=== PATIENT | male | born 2000 | race Two or more races ===

== ENCOUNTER 2022-06-09 19:19 | Emergency (ER) | payer SELFPAY ==
[~2022-06-09] VITALS: Ht 182.9 cm; Wt 90.7 kg
[2022-06-09 20:03] LABS: Basophils # (auto) 0.1 10 ^3/uL (0-0.2); Eosinophils # (auto) 0.2 10 ^3/uL (0-0.8); Eosinophils % (auto) 3.4 % (0.0-7.0); Hematocrit 43.4 % (41.0-53.0); Hemoglobin 15.5 g/dL (13.5-17.5); Lymphocytes # (auto) 1.3 10 ^3/uL (0.4-5.4); Mean Corpuscular Hemoglobin 31.3 pg (28.0-32.0); Mean Corpuscular Hgb Conc. 35.7 g/dL (32.0-36.0); Mean Corpuscular Volume 87.5 fL (80.0-100.0); Monocytes # (auto) 0.4 10 ^3/uL (0-1.3); Monocytes % (auto) 6.2 % (0.0-12.0); Neutrophils # (auto) 4.2 10 ^3/uL (1.6-8.6); Neutrophils % (auto) 68.4 % (37.0-80.0); Red Blood Cells 4.95 10^6/uL (4.5-5.90); Red Cell Distribution Width 12.6 % (11.8-14.3); White Blood Cell 6.2 10^3/uL (4.4-10.8)
[2022-06-09 20:24] LABS: INR 1.18 (0.9-1.15); Partial Thromboplastin Time 27.4 sec (24.6-33.4)
[2022-06-09 20:25] LABS: Albumin 4.7 g/dL (3.4-5.0); BUN/Creatinine Ratio 11.9; Calcium 9.6 mg/dL (8.5-10.1); Magnesium 2.1 mg/dL (1.6-2.6); Potassium 3.6 mmol/L (3.5-5.1)
[2022-06-09 20:28] LABS: Bilirubin, Total 0.9 mg/dL (0.2-1.0); Total Protein 7.9 g/dL (6.4-8.2)
[2022-06-09 21:25] LABS: Urine Amorphous Crystal FEW /hpf (None Seen); Urine Bacteria NONE SEEN /hpf (None Seen); Urine Blood Negative /uL (Negative); Urine Mucus FEW (None Seen); Urine Specific Gravity 1.021 (1.001-1.035); Urine WBC 21 /hpf (0 - 3); Urine WBC Clumps PRESENT /hpf (None Seen)
[2022-06-09 21:36] LABS: Alcohol, Urine < 3.0 mg/dL (0-10); Amphetamine Screen, Urine NEGATIVE (NEGATIVE); Barbiturate Scree,Urine NEGATIVE (NEGATIVE); Benzodiazephine Screen, Urine NEGATIVE (NEGATIVE); Cannabinoid Screen, Urine NEGATIVE (NEGATIVE); Cocaine Screen, Urine NEGATIVE (NEGATIVE); Opiate Scree,Urine NEGATIVE (NEGATIVE); Phencyclidine Screen, Urine NEGATIVE (NEGATIVE)
[2022-06-09 22:23] VITALS: BP 106/60
[2022-06-09] MEDS ORDERED: LORazepam 0.5 MG TAB PO ONE (22:45)
[2022-06-10] MEDS ORDERED: PROPARACAINE HCL 0.5% OPTH(EYE) SOL 15ML OP ONE (04:30)
[2022-06-10] MEDS ORDERED: TETRACAINE HCL 0.5% OPTH(EYE) SOLN 4ML EACHEYE ONE (05:30)
== END 2022-06-10 05:21 | disposition left against medical advice (07) ==
LOC: EDBD 19:19 → ER 19:28
DX: I31.9 Disease of pericardium, unspecified (principal); R55 Syncope and collapse; R07.89 Other chest pain; F41.9 Anxiety disorder, unspecified; Z53.29 Procedure and treatment not carried out because of patient's decision for other reasons
CPT/HCPCS: 36415; 71045; 80053; 80307; 80320; 81001; 83735; 84484; 85025; 85610; 85730; 93005

== ENCOUNTER 2024-08-11 02:05 | Emergency (ER) | payer MEDICAID, OTHER ==
[~2024-08-11] VITALS: Ht 182.9 cm; Wt 98.9 kg
[2024-08-11 03:19] LABS: Urine Bacteria None Seen /hpf (None Seen)
[2024-08-11 03:56] LABS: Basophils # (auto) 0 10 ^3/uL (0-0.2); Basophils % (auto) 0.7 % (0.0-2.0); Eosinophils # (auto) 0.2 10 ^3/uL (0-0.8); Eosinophils % (auto) 3.1 % (0.0-7.0); Hematocrit 43.6 % (41.0-53.0); Hemoglobin 15.4 g/dL (13.5-17.5); Lymphocytes # (auto) 2.3 10 ^3/uL (0.4-5.4); Lymphocytes % (auto) 37.1 % (10.0-50.0); Mean Corpuscular Hemoglobin 31.4 pg (28.0-32.0); Mean Corpuscular Hgb Conc. 35.3 g/dL (32.0-36.0); Mean Corpuscular Volume 88.9 fL (80.0-100.0); Monocytes # (auto) 0.7 10 ^3/uL (0-1.3); Monocytes % (auto) 11.9 % (0.0-12.0); Neutrophils % (auto) 47.2 % (37.0-80.0); Nucleated Red Blood Cells % 0.1 %; Platelet Count (auto) 309 10^3/uL (140-450); Red Blood Cells 4.91 10^6/uL (4.5-5.90); Red Cell Distribution Width 12.9 % (11.8-14.3); White Blood Cell 6.3 10^3/uL (4.4-10.8)
[2024-08-11 04:11] LABS: Urine Blood Negative /uL (Negative); Urine Clarity Clear (Clear); Urine Color Light-Yellow (Yellow); Urine Protein, UAD Negative (Negative); Urine Specific Gravity 1.027 (1.001-1.035); Urine Squamous Epithelial Cell None Seen /hpf (<5); Urine Urobilinogen Normal (Negative); Urine WBC <1 /hpf (0 - 3)
[2024-08-11 04:11] LABS: Alanine Aminotransferase 23 U/L (7-40); Albumin 4.8 g/dL (3.2-4.8); Alkaline Phosphatase 75 U/L (46-116); Anion Gap 8 (5-15); Aspartate Aminotransferase 17 U/L (13-40); BUN/Creatinine Ratio 12.2 (10.0-20.0); Blood Urea Nitrogen 11 mg/dL (9-23); Calcium 10.2 mg/dL (8.7-10.4); Carbon Dioxide 26 mmol/L (20-31); Chloride 107 mmol/L (98-107); Glucose 104 mg/dL (74-106); Lipase 39 U/L (12-53); Potassium 4.2 mmol/L (3.5-5.1); Sodium 141 mmol/L (136-145)
[2024-08-11 04:12] LABS: Bilirubin, Total 0.3 mg/dL (0.2-1.0); Total Protein 7.4 g/dL (5.7-8.2)
--- NOTE | 2024-08-11 04:14 | ED.PDOC ---
GI ASSESSMENT HPI Comments 23y M who presents to the ED for chief complaint of abdominal pain. Pt states he has been having R sided abdominal pain for the past 3 hours. Pt states the pain is by his RUQ radiating to the RLQ, constant, pressure like in nature, with no associated exacerbating or relieving factors. Pt has associated nausea and vomiting ,chills and fever but otherwise denies diarrhea, cough, dysuria or hematuria. Pt states he has been evaluated for similar symptoms in the past and told he had gallstones. Pt otherwise states he took Tylenol prior to ED arrival. Pt otherwise denies any other symptoms at this time. Pt has temp of 98.1 F with all other vitals in normal range. Pt denies any other symptoms at this time. Chief Complaint: Abdominal Pain Time Seen by MD: 04:09 Reviewed Notes: Nurses Notes Allergies: Coded Allergies: Iodine (Verified Allergy, Unknown, 08/11/24) Information Source: Patient Mode of Arrival: Ambulatory Brought in by: self Vital Signs Vital Signs Date Time Temp Pulse Resp B/P (MAP) Pulse Ox O2 Delivery O2 Flow Rate FiO2 08/11/24 04:29 98.7 70 16 120/72 (88) 99 98.7 08/11/24 04:29 Room Air Past Medical History PAST MEDICAL HISTORY: Anxiety, Gallstones Surgical History: Denies all surgeries Family History Family History: Unknown Social History Smoker: Non-Smoker Alcohol: Denies ETOH Use Drugs: Denies Drug Use Lives In: Unknown Was a procedure done? Was a procedure done?: No GI differential Dx Differential Diagnosis: Appendicitis, Constipation, Esophagitis, Gastritis/PUD, Gastroenteritis, Pancreatitis, Dehydration, Electrolyte Imbalance, Food Poisoning, Bacterial, Viral Other Differential Diagnosis gallstones, biliary colic, X-Ray, Labs, Meds, VS Vital Signs Date Time Temp Pulse Resp B/P (MAP) Pulse Ox O2 Delivery O2 Flow Rate FiO2 08/11/24 04:29 98.7 70 16 120/72 (88) 99 98.7 08/11/24 04:29 70 16 99 Room Air 08/11/24 02:20 98.1 77 18 130/85 (100) 98 Lab Test 08/11/24 03:30 08/11/24 02:17 Range/Units White Blood Count 6.3 4.4-10.8 10^3/uL Red Blood Count 4.91 4.5-5.90 10^6/uL Hemoglobin 15.4 13.5-17.5 g/dL Hematocrit 43.6 41.0-53.0 % Mean Corpuscular Volume 88.9 80.0-100.0 fL Mean Corpuscular Hemoglobin 31.4 28.0-32.0 pg Mean Corpuscular Hemoglobin Concent 35.3 32.0-36.0 g/dL Red Cell Distribution Width 12.9 11.8-14.3 % Platelet Count 309 140-450 10^3/uL Mean Platelet Volume 8.3 6.9-10.8 fL Neutrophils (%) (Auto) 47.2 37.0-80.0 % Lymphocytes (%) (Auto) 37.1 10.0-50.0 % Monocytes (%) (Auto) 11.9 0.0-12.0 % Eosinophils (%) (Auto) 3.1 0.0-7.0 % Basophils (%) (Auto) 0.7 0.0-2.0 % Neutrophils # (Auto) 3.0 1.6-8.6 10 ^3/uL Lymphocytes # (Auto) 2.3 0.4-5.4 10 ^3/uL Monocytes # (Auto) 0.7 0-1.3 10 ^3/uL Eosinophils # (Auto) 0.2 0-0.8 10 ^3/uL Basophils # (Auto) 0 0-0.2 10 ^3/uL Nucleated Red Blood Cells 0.1 % Sodium Level 141 136-145 mmol/L Potassium Level 4.2 3.5-5.1 mmol/L Chloride Level 107 98-107 mmol/L Carbon Dioxide Level 26 20-31 mmol/L Anion Gap 8 5-15 Blood Urea Nitrogen 11 9-23 mg/dL Creatinine 0.90 0.700-1.30 mg/dL Glomerular Filtration Rate Calc 124 >90 mL/min BUN/Creatinine Ratio 12.2 10.0-20.0 Serum Glucose 104 74-106 mg/dL Lactic Acid Level 0.8 0.4-2.0 mmol/L Calcium Level 10.2 8.7-10.4 mg/dL Total Bilirubin 0.3 0.2-1.0 mg/dL Aspartate Amino Transferase (AST) 17 13-40 U/L Alanine Aminotransferase (ALT) 23 7-40 U/L Alkaline Phosphatase 75 46-116 U/L Total Protein 7.4 5.7-8.2 g/dL Albumin 4.8 3.2-4.8 g/dL Lipase 39 12-53 U/L Urine Color Light-yellow Yellow Urine Clarity Clear Clear Urine pH 6.0 5.0-9.0 Urine Specific [place] 1.027 1.001-1.035 Urine Protein Negative Negative Urine Ketones Negative Negative Urine Blood Negative Negative /uL Urine Nitrite Negative Negative Urine Bilirubin Negative Negative Urine Urobilinogen Normal Negative mg/dL Urine Leukocyte Esterase Negative Negative /uL Urine RBC 1 0 - 3 /hpf Urine WBC <1 0 - 3 /hpf Urine Squamous Epithelial Cells None seen <5 /hpf Urine Bacteria None seen None Seen /hpf Urine Glucose Normal Normal mg/dL [place] [id number] Ph: [phone] DIAGNOSTIC IMAGING Diagnostic Imaging Report : [id number] Signed PATIENT: HOMER BUSH ACCT: [id number] UNIT: [id number] : 2000 LOC: ER ROOM / BED: / AGE / SEX: 23 / M ADM STATUS: REG ER SERVICE [id number] ORDERING PHYSICIAN: ADOLFO ALEJANDRO MD PROCEDURE(s): ABPL - CT AB PEL WO CON-NO ORAL OR IV REASON: ruQ PAIN RADIATING TO rlq hx gallstones ORDER NUMBER(s): [id number], ACCESSION NUMBER(s): [id number] Exam: CT CT AB PEL WO CON-NO ORAL OR IV History: ruQ PAIN RADIATING TO rlq hx gallstones Comparison Study: None available at time of dictation. Technique: Multidetector spiral CT of the abdomen and pelvis was performed from lung bases to pubic symphysis. Imaging was performed without intravenous contrast. Coronal and sagittal multiplanar reformats were obtained from the ax ia data set by the technologist. Radiation Dose : 1. Abdomen/Pelvis: CTDIvol 10.3 mGy, DLP 606.6 mGy*cm. Findings: Evaluation of vasculature and solid organs is limited due to lack of intravenous contrast use. Lung Bases: Lung bases are clear. Visualized portions of the heart and pericardium are unremarkable. Liver: The liver is normal in size. No focal lesions. Gallbladder and Biliary Tree: The gallbladder has several gallstones. No intrahepatic or extrahepatic biliary ductal dilatation. Spleen: Enlarged measuring 14.9 cm. Pancreas: The pancreas is grossly unremarkable. Adrenal Glands: Unremarkable Kidneys: Kidneys are unremarkable without calculi or hydronephrosis. GI tract: The stomach is grossly normal in appearance. No evidence of small bowel wall thickening or abnormal dilatation to suggest bowel obstruction. The colon is unremarkable. The appendix is not visualized, however no inflammatory changes in the right lower quadrant to suggest acute appendicitis. Peritoneum/mesentery/retroperitoneum. No evidence of free intraperitoneal air. No ascites. No evidence of suspicious lymphadenopathy. Abdominal Wall: Unremarkable. Vasculature: The visualized abdominal aorta is normal in size and caliber. Evaluation of abdominal and pelvic vessels is limited due to lack of intravenous contrast. Urinary Bladder: Grossly unremarkable for degree of distention. Pelvic Organs: Unremarkable Musculoskeletal: No aggressive focal bony lesions, acute fractures or dislocation. IMPRESSION: 1. No acute abdominal or pelvic findings. 2. Gallstones. 3. Splenomegaly. ATED BY: CURLY SHEA MD DICTATED DATE/TIME: 08/11/244 SIGNED BY: CURLY SHEA MD SIGNED DATE/TIME: 08/11/24423 CC: Time of 1ST Reevaluation: 05:24 Reevaluation 1ST: Improved Patient Education/Counseling: Diagnosis, Treatment, Need For Follow Up Family Education/Counseling: No Family Present Departure 1 Departure Time of Disposition: 05:24 Impression: Primary Impression: Abdominal pain Disposition: HOME / SELF CARE / HOMELESS Condition: Stable Additional Instructions: ED DISCHARGE INSTRUCTIONS Instructions: Please read all instructions provided in this packet carefully. Although you have been discharged from the Emergency Department, this does not mean that you have a "clean bill of health". No definitive diagnosis for your symptoms has been made today. It is possible that you are in the process of dev eloping a serious illness. This is why you must return to the ED without fail if any new or worsening symptoms (especially if your symptoms include chest pain, trouble breathing, abdominal pain, fever, headache, confusion, trouble seeing, or trouble walking) It is also very important that you see a primary care doctor within the next 3-5 days to follow up. If you are unable to get an appointment, return to the ED for re-evaluation. Abdominal Pain: Care Instructions Overview Abdominal pain has many possible causes. Some aren't serious and get better on their own in a few days. Others need more testing and treatment. If your pain continues or gets worse, you need to be rechecked and may need more tests to find out what is wrong. You may need surgery to correct the problem. Don't ignore new symptoms, such as fever, nausea and vomiting, urination problems, pain that gets worse, and dizziness. These may be signs of a more serious problem. If you are not getting better, you may need more tests or treatment. The doctor has checked you carefully, but problems can develop later. If you notice any problems or new symptoms, get medical treatment right away. Follow-up care is a perez part of your treatment and safety. Be sure to make and go to all appointments, and call your doctor if you are having problems. It's also a good idea to know your test results and keep a list of the medicines you take. How can you care for yourself at home? Rest until you feel better. To prevent dehydration, drink plenty of fluids. Choose water and other clear liquids until you feel better. If you have kidney, heart, or liver disease and have to limit fluids, talk with your doctor before you increase the amount of fluids you drink. When you feel like eating, start with small amounts. Do not have alcohol, caffeine, or spicy, hot, or high-fat foods for a day or two. Avoid anti-inflammatory medicines such as aspirin, ibuprofen (Advil, Motrin), and naproxen (Aleve). These can cause stomach upset. Talk to your doctor if you take daily aspirin for another health problem. When should you call for help? Call 911 anytime you think you may need emergency care. For example, call if: You passed out (lost consciousness). You pass maroon or very bloody stools. You vomit blood or what looks like coffee grounds. You have severe belly pain. Call your doctor now or seek immediate medical care if: Your pain gets worse, especially if it becomes focused in one area of your belly. You have a new or higher fever. Your stools are black and look like tar, or they have streaks of blood. You have unexpected vaginal bleeding. You have symptoms of a urinary tract infection. These may include: Pain when you urinate. Urinating more often than usual. Blood in your urine. You are dizzy or lightheaded, or you feel like you may faint. Watch closely for changes in your health, and be sure to contact your doctor if: You are not getting better as expected. Credits for Abdominal Pain: Care Instructions Current as of: May 16, 2023 Author: [employer] Staff Clinical Review Board All [email or web address] education is reviewed by a team that includes physicians, nurses, advanced practitioners, registered dieticians, and other healthcare professionals. Comments 23 M present to the ED with RUQ abdominal pain. Abdominal exam is benign. He has no peritoneal signs. Patient is well-appearing, nontoxic. Patient's symptoms improved during the ED observation. Vital signs stable. Lab and imaging results reviewed and are not urgently actionable. Patient is felt stable for discharge home. Patient advised to follow up with primary care provider promptly and return to the emergency department with any new, worsening or concerning symptoms. I reviewed the following notes from the pt's past medical encounters: Encounter in June 17, 2022 for anxiety The following tests were ordered, and results were reviewed by me: (See diagnostic results section) The following test were independently interpreted by me: N/A Additional information was gathered from interviewing the following independent historians: (N/A) I reviewed and agreed with the following test results read by other providers: CT abdomen pelvis I discussed treatments and results with medical personnel and patient Decision regarding hospitalization or escalation of hospital level of care: Risks and benefits of admission for further treatment of patient's condition was considered however due to patient's stable condition patient will be discharged to follow up closely or return to care for worsening of condition or inability to follow up. Critical Care Note Critical Care Time?: No Stability Stability form required: No Heart Score Heart Score: Heart Score Response (Comments) Value History N/A 0 EKG N/A 0 Age N/A 0 Risk Factors N/A 0 Troponin N/A 0 Total 0 I personally scribed for ADOLFO ALEJANDRO MD ([email or web address]) on 08/11/24 at 04:14. Electronically submitted by Louis Mckinnon ([facility] [place]). I personally scribed for ADOLFO ALEJANDRO MD ([email or web address]) on 08/11/24 at 04:33. Electronically submitted by Louis Mckinnon ([facility] [place]). ADOLFO ALEJANDRO MD Aug 11, 2024 04:14
--- NOTE | 2024-08-11 04:27 | DVH ---
Exam: CT CT AB PEL WO CON-NO ORAL OR IV History: ruQ PAIN RADIATING TO rlq hx gallstones Comparison Study: None available at time of dictation. Technique: Multidetector spiral CT of the abdomen and pelvis was performed from lung bases to pubic s ymphysis. Imaging was performed without intravenous contrast. Coronal and sagittal multiplanar refor mats were obtained from the axial data set by the technologist. Radiation Dose : 1. Abdomen/Pelvis: CTDIvol 10.3 mGy, DLP 606.6 mGy*cm. Findings: Evaluation of vasculature and solid organs is limited due to lack of intravenous contrast use. Lung Bases: Lung bases are clear. Visualized portions of the heart and pericardium are unremarkable. Liver: The liver is normal in size. No focal lesions. Gallbladder and Biliary Tree: The gallbladder has several gallstones. No intrahepatic or extrahepat ic biliary ductal dilatation. Spleen: Enlarged measuring 14.9 cm. Pancreas: The pancreas is grossly unremarkable. Adrenal Glands: Unremarkable Kidneys: Kidneys are unremarkable without calculi or hydronephrosis. GI tract: The stomach is grossly normal in appearance. No evidence of small bowel wall thickening or abnormal dilatation to suggest bowel obstruction. The colon is unremarkable. The appendix is not vi sualized, however no inflammatory changes in the right lower quadrant to suggest acute appendicitis. Peritoneum/mesentery/retroperitoneum. No evidence of free intraperitoneal air. No ascites. No evidenc e of suspicious lymphadenopathy. Abdominal Wall: Unremarkable. Vasculature: The visualized abdominal aorta is normal in size and caliber. Evaluation of abdominal a nd pelvic vessels is limited due to lack of intravenous contrast. Urinary Bladder: Grossly unremarkable for degree of distention. Pelvic Organs: Unremarkable Musculoskeletal: No aggressive focal bony lesions, acute fractures or dislocation. IMPRESSION: 1. No acute abdominal or pelvic findings. 2. Gallstones. 3. Splenomegaly.
[2024-08-11 04:29] VITALS: BP 120/72; PULSE 70; RESP 16; TEMP 98.7; O2SAT 99
[2024-08-11] MEDS: IOHEXOL 300 MG/ML 100ML BOTTLE IJ ONE (04:33)
== END 2024-08-11 05:36 | disposition home or self-care (01) ==
LOC: ER 02:05
DX: R10.31 Right lower quadrant pain (principal); R50.9 Fever, unspecified; Z88.8 Allergy status to other drugs, medicaments and biological substances; Z91.041 Radiographic dye allergy status
CPT/HCPCS: 36415; 74176; 80053; 81001; 83605; 83690; 85025

== ENCOUNTER 2024-10-05 19:26 | Emergency (ER) | payer OTHER ==
[~2024-10-05] VITALS: Ht 182.9 cm; Wt 91.0 kg
[2024-10-05 19:36] VITALS: BP 110/71
--- NOTE | 2024-10-05 19:38 | ED.PDOC ---
History of Present Illness HPI Comments 23-year-old male, with a history of gallstones, presents with complaint of nonradiating, sternal chest pain, shortness of breath, and generalized body tingling sensations, today. Patient is a poor historian and endorses on sudden an unprovoked onset of symptoms, while leaving work, 30 minutes prior to ED ar rival. Patient comments on being fine the entire day prior and reports no history of similar symptoms in the past. He also mentions no recent chemical exposures, drug use, or stressors alongside any additional relevant or pertinent information such as any significant medical history, like anxiety. Patient denies having any palpitations, cough, congestion, nausea, vomiting, fever, shows, or other associated symptoms at time of initial assessment. Per [facility] medical record, patient was seen at ED on June 09 2022 for anxiety. Chief Complaint: Chest Pain Time Seen by MD: 19:40 Reviewed Notes: Nurses Notes, Medications, Allergies Allergies: Coded Allergies: Iodine (Verified Allergy, Unknown, 08/11/24) Information Source: Patient Mode of Arrival: Ambulatory Severity: Moderate Duration: Since onset Prehospital treatment: None Review of Systems: REVIEW OF SYSTEMS: No fever, no chills, or fatigue HEENT: No sore throat, no earache, no congestion, no neck pain. Cardiac: chest pain. No palpitations. Lungs: shortness of breath, no cough. GI: No nausea, no vomiting, no diarrhea, no constipation, no abdominal pain : No dysuria, frequency, or urgency. No hematuria. Musculoskeletal: No joint pain , no joint swelling, no extremity edema. Skin: No rash, no itching. Neuro: generalized body tingling sensations, no headache, no dizziness, no weakness Vital Signs Vital Signs Date Time Temp Pulse Resp B/P (MAP) Pulse Ox O2 Delivery O2 Flow Rate FiO2 10/05/24 20:38 65 10/05/24 19:36 98.9 18 110/71 (84) 99 Physical Exam Pubic General: Awake, alert and oriented. Appears anxious and tearful. Skin: Skin in warm, dry and intact. Appropriate color for ethnicity. HEENT: The head is normocephalic and atraumatic. Conjunctivae are clear without exudates or hemorrhage. Sclera is non-icteric. EOM are intact. No signs of nystagmus. Eyelids are normal in appearance without swelling or lesions. Oral mucosa is pink and moist Neck: The neck is supple with normal range of motion. No JVD. Cardiac: Heart rate and rhythm are normal. No murmurs, gallops, or rubs are auscultated. Respiratory: No signs of respiratory distress. Lung sounds are clear in all lobes bilaterally without rales, ronchi, or wheezes. Abdominal: Abdomen is soft, non-tender without distention. Bowel sounds are present and normoactive in all four quadrants. Extremities: Upper and lower extremities are atraumatic in appearance without deformity or edema. Neurological: The patient is awake, alert and oriented to person, place, and time with normal speech. Speech is clear. There is no facial asymmetry. Psychiatric: Appropriate mood and affect. Good judgement and insight. No visual or auditory hallucinations. Past Medical History PAST MEDICAL HISTORY: Anxiety, Gallstones Surgical History: Denies all surgeries Family History Family History: Unknown Social History Smoker: Non-Smoker Alcohol: Denies ETOH Use Drugs: Denies Drug Use Lives In: Unknown Was a procedure done? Was a procedure done?: No EKG EKG : Pulse Rate (adult): 77 [place]: Normal Cardiac Rhythm: NSR Block: None Hypertrophy: None ST: Normal Differential Dx Considerations may include: Differential diagnoses considered include acute ischemic coronary syndrome, ao rtic dissection, cardiac tamponade, mediastinitis, pulmonary embolus, pneumothorax, tension pneumothorax, esophageal rupture, coronary artery vasospasm, myocarditis, pericarditis, pneumonia, pulmonary edema, esophageal tear, pancreatitis, aortic stenosis, dilated cardiomyopathy, hypertrophic cardiomyopathy, mitral valve prolapse, malignancy, pleuritis, pneumomediastinum, primary pulmonary hypertension, cholecystitis, esophageal spasm, esophagus, gastritis, GERD, peptic ulcer disease, costochondritis, fibromyalgia, rib fracture, herpes zoster, radicular syndromes, thoracic outlet syndrome, somatization. X-Ray, Labs, Meds, VS Vital Signs Date Time Temp Pulse Resp B/P (MAP) Pulse Ox O2 Delivery O2 Flow Rate FiO2 10/05/24 20:38 65 10/05/24 20:15 77 10/05/24 19:36 98.9 80 18 110/71 (84) 99 10/05/24 19:35 77 Lab Test 10/05/24 21:06 10/05/24 20:00 Range/Units Troponin I High Sensitivity < 3 L < 3 L </=54 ng/L White Blood Count 7.4 4.4-10.8 10^3/uL Red Blood Count 5.00 4.5-5.90 10^6/uL Hemoglobin 15.5 13.5-17.5 g/dL Hematocrit 43.4 41.0-53.0 % Mean Corpuscular Volume 86.7 80.0-100.0 fL Mean Corpuscular Hemoglobin 31.1 28.0-32.0 pg Mean Corpuscular Hemoglobin Concent 35.8 32.0-36.0 g/dL Red Cell Distribution Width 13.3 11.8-14.3 % Platelet Count 375 140-450 10^3/uL Mean Platelet Volume 8.0 6.9-10.8 fL Neutrophils (%) (Auto) 48.4 37.0-80.0 % Lymphocytes (%) (Auto) 42.1 10.0-50.0 % Monocytes (%) (Auto) 6.6 0.0-12.0 % Eosinophils (%) (Auto) 1.9 0.0-7.0 % Basophils (%) (Auto) 1.0 0.0-2.0 % Neutrophils # (Auto) 3.6 1.6-8.6 10 ^3/uL Lymphocytes # (Auto) 3.1 0.4-5.4 10 ^3/uL Monocytes # (Auto) 0.5 0-1.3 10 ^3/uL Eosinophils # (Auto) 0.1 0-0.8 10 ^3/uL Basophils # (Auto) 0.1 0-0.2 10 ^3/uL Nucleated Red Blood Cells 0.1 % Sodium Level 141 136-145 mmol/L Potassium Level 3.5 3.5-5.1 mmol/L Chloride Level 108 H 98-107 mmol/L Carbon Dioxide Level 23 20-31 mmol/L Anion Gap 10 5-15 Blood Urea Nitrogen 10 9-23 mg/dL Creatinine 1.10 0.700-1.30 mg/dL Glomerular Filtration Rate Calc 97 >90 mL/min BUN/Creatinine Ratio 9.1 L 10.0-20.0 Serum Glucose 94 74-106 mg/dL Calcium Level 10.0 8.7-10.4 mg/dL Total Bilirubin 0.6 0.2-1.0 mg/dL Aspartate Amino Transferase (AST) 15 13-40 U/L Alanine Aminotransferase (ALT) 23 7-40 U/L Alkaline Phosphatase 64 46-116 U/L C-Reactive Protein High Sensitivity 0.05 <1.0 mg/dL Total Protein 7.6 5.7-8.2 g/dL Albumin 4.9 H 3.2-4.8 g/dL Thyroid Stimulating Hormone (TSH) 0.85 0.55-4.78 uIU/mL Current Medications Medications (Trade) Dose Ordered Sig/Anh Route Start Time Stop Time Status Last Admin Lorazepam (Ativan Tablet) 1 mg ONCE ONCE PO 10/05/24 20:00 10/05/24 20:01 DC 10/05/24 19:53 Aspirin 324 mg ONCE ONCE PO 10/05/24 20:00 10/05/24 20:01 DC 10/05/24 19:53 [place] [id number] Ph: [phone] DIAGNOSTIC IMAGING Diagnostic Imaging Report : [id number] Signed PATIENT: HOMER BUSH ACCT: [id number] UNIT: [id number] : 2000 LOC: ER ROOM / BED: / AGE / SEX: 23 / M ADM STATUS: REG ER SERVICE 45 ORDERING PHYSICIAN: ADOLFO ALEJANDRO MD PROCEDURE(s): CXR1 - CHEST XRAY 1 VIEW REASON: cp, sob ORDER NUMBER(s): [id number], ACCESSION NUMBER(s): [id number] EXAMINATION: Chest x-ray 1 view CLINICAL HISTORY: cp, sob COMPARISON: CHEST PORTABLE on DOS: 06/09/22 FINDINGS: Right lateral thorax partially excluded. No dominant consolidations in the visualized lung jones. No definite pleural effusions or pneumothorax. The cardiomediastinal silhouette appears within normal limits given technique. IMPRESSION: No acute cardiopulmonary findings as visualized. ATED BY: KESHAV DURON MD DICTATED DATE/TIME: 10/05/242099 SIGNED BY: KESHAV DURON MD SIGNED DATE/TIME: 10/05/242099 CC: Time of 1ST Reevaluation: 20:10 Reevaluation 1ST: Unchanged Patient Education/Counseling: Treatment, Need For Follow Up Family Education/Counseling: No Family Present Departure 1 Departure Time of Disposition: 23:50 Impression: Primary Impression: Chest pain Additional Impression: Panic attack Disposition: HOME / SELF CARE / HOMELESS Condition: Stable Additional Instructions: ED DISCHARGE INSTRUCTIONS Instructions: Please read all instructions provided in this packet carefully. Although you have been discharged from the Emergency Department, this does not mean that you have a "clean bill of health". []No definitive diagnosis for your symptoms has been made today. It is possible that you are in the process of developing a serious illness. This is why you must return to the ED without fail if any new or worsening symptoms (especially if your symptoms include chest pain, trouble breathing, abdominal pain, fever, headache, confusion, trouble seeing, or trouble walking) It is also very important that you see a primary care doctor within the next 1-3 days to follow up. If you are unable to get an appointment, return to the ED for re-evaluation. CHEST PAIN EDUCATION There are many things that can cause chest pain. Some are not serious and will get better on their own in a few days. But some kinds of chest pain need more testing and treatment. Your doctor may have recommended a follow-up visit in the next few days. If you are not getting better, you may need more tests or treatment. Even though your doctor has released you, you still need to watch for any problems. The doctor carefully checked you, but sometimes problems can develop later. If you have new symptoms or if your symptoms do not get better, get medical care right away. If you have worse or different chest pain or pressure that lasts more than 5 minutes or you passed out (lost consciousness), call 911 or seek other emergency help right away. A medical visit is only one step in your treatment. Even if you feel better, you still need to do what your doctor recommends, such as going to all suggested follow-up appointments and taking medicines exactly as directed. This will help you recover and help prevent future problems. How can you care for yourself at home? Rest until you feel better. Take your medicine exactly as prescribed. Call your doctor if you think you are having a problem with your medicine. Do not drive after taking a prescription pain medicine. When should you call for help? Call 911 if: You passed out (lost consciousness). You have severe difficulty breathing. You have symptoms of a heart attack. These may include: Chest pain or pressure, or a strange feeling in your chest. Sweating. Shortness of breath. Nausea or vomiting. Pain, pressure, or a strange feeling in your back, neck, jaw, or upper belly or in one or both shoulders or arms. Lightheadedness or sudden weakness. A fast or irregular heartbeat. After you call 911, the lithographic camera operator may tell you to chew 1 adult-strength or 2 to 4 low-dose aspirin. Wait for an ambulance. Do not try to drive yourself. Call your doctor now or seek immediate medical care if: You have any trouble breathing. You have new or different chest pain. You are dizzy or lightheaded, or you feel like you may faint. Watch closely for changes in your health, and be sure to contact your doctor if you do not get better as expected. Current as of: February 26, 2024 Author: [employer] Staff? What are panic attacks and panic disorder? A panic attack is a sudden, intense fear or anxiety. It may make you short of breath or dizzy or make your heart pound. You may feel out of control. Some people believe that they're having a heart attack or are about to . An attack usually lasts from 5 to 20 minutes. But it may last longer, up to a few hours. If these attacks happen often, they are called a panic disorder. Panic attacks can be scary and so bad that they get in the way of your daily activities. Treatment can help most people have fewer symptoms or even stop the attacks. What causes them? Experts aren't sure what causes panic attacks and panic disorder. Attacks occur when you feel stressed or sense danger, Opens dialog even though there is none. They may be more likely if you have a family history of panic disorder. They may be triggered by things such as depression, high stress levels, and heavy alcohol use. What are the symptoms of a panic attack and panic disorder? A panic attack may cause a feeling of intense fear, terror, or anxiety. Other symptoms include trouble breathing, chest pain or tightness, and a fast or irr egular heartbeat. When you have panic disorder, you have repeated, unexpected panic attacks. And you may worry that you'll have another attack. Because of this fear, you may change your daily activities to avoid situations that may trigger it. How are they diagnosed? Your doctor will ask about your health and symptoms and do a physical exam. You may get blood tests to rule out other causes of your symptoms. You may have panic disorder if you have at least two unexpected panic attacks, worry about having another attack, and avoid situations that may trigger it. How are they treated? Treatment for panic attacks and panic disorder includes counseling, such as cognitive-behavioral therapy (CBT). Medicines, such as antidepressants, may also help. Treatment can help most people control or even stop attacks. But symptoms can come back, especially if you stop treatment too soon. Comments 21-year-old male who presented to the emergency department with chest pain and appeared to be having a panic attack. Serial EKG negative for signs of ischemia. Serial High sensitivity troponin negative. CXR shows no acute process . Presentation not suggestive of acute coronary syndrome, pulmonary embolism or aortic dissection. Patient improved at time of discharge. No hypoxia, respiratory distress or dyspnea at discharge. Patient able to ambulate without difficulty. Patient's anxiety symptoms improved after treatment of observation in the emergency department. He is felt stable for discharge home. Patient well-appearing, nontoxic. Advised prompt follow-up with PCP, return to the ED with any new, worsening or concerning symptoms. Extensive evaluation was performed in attempt to identify or rule out: (See differential diagnosis section) The following tests were ordered, and results were reviewed by me: (See diagnostic results section) The following test were independently interpreted by me: EKG, chest x-ray I reviewed and agreed with the following test results read by other providers: Chest x-ray I reviewed the following notes from the pt's past medical encounters: July/2024 encounter for abdominal pain Additional information was gathered from interviewing the following independent historians: N/A Discussion of management or test interpretation with external physician/other qualified health care specialist: N/A Decision regarding hospitalization or escalation of hospital level of care: Risks and benefits of admission for further treatment of patient's condition was considered however due to patient's stable condition patient will be discharged to follow up closely or return to care for worsening of condition or inability to follow up. Critical Care Note Critical Care Time?: No Stability Stability form required: No Heart Score Heart Score: Heart Score Response (Comments) Value History Slightly Suspicious 0 EKG Normal 0 Age <45 0 Risk Factors No known risk factors 0 Troponin Normal limit 0 Total 0 I personally scribed for ADOLFO ALEJANDRO MD ([email or web address]) on 10/05/24 at 19:38. Electronically submitted by Demetrius Carrero ([email or web address]). I personally scribed for ADOLFO ALEJANDRO MD ([email or web address]) on 10/05/24 at 20:15. Electronically submitted by Demetrius Carrero ([email or web address]). I personally scribed for ADOLFO ALEJANDRO MD ([email or web address]) on 10/05/24 at 20:34. Electronically submitted by Demetrius Carrero ([email or web address]). I personally scribed for ADOLFO ALEJANDRO MD ([email or web address]) on 10/05/24 at 22:32. Electronically submitted by Demetrius Carrero ([email or web address]). ADOLFO ALEJANDRO MD Oct 05, 2024 19:38
[2024-10-05] MEDS: LORazepam 0.5 MG TAB PO ONE ×2 (19:53)
[2024-10-05] MEDS: ASPirin 81 mg TAB PO ONE (19:53)
[2024-10-05 20:18] LABS: Basophils # (auto) 0.1 10 ^3/uL (0-0.2); Eosinophils # (auto) 0.1 10 ^3/uL (0-0.8); Eosinophils % (auto) 1.9 % (0.0-7.0); Hematocrit 43.4 % (41.0-53.0); Hemoglobin 15.5 g/dL (13.5-17.5); Lymphocytes # (auto) 3.1 10 ^3/uL (0.4-5.4); Lymphocytes % (auto) 42.1 % (10.0-50.0); Mean Corpuscular Hemoglobin 31.1 pg (28.0-32.0); Mean Corpuscular Hgb Conc. 35.8 g/dL (32.0-36.0); Mean Corpuscular Volume 86.7 fL (80.0-100.0); Monocytes # (auto) 0.5 10 ^3/uL (0-1.3); Monocytes % (auto) 6.6 % (0.0-12.0); Neutrophils # (auto) 3.6 10 ^3/uL (1.6-8.6); Neutrophils % (auto) 48.4 % (37.0-80.0); Nucleated Red Blood Cells % 0.1 %; Platelet Count (auto) 375 10^3/uL (140-450); Red Cell Distribution Width 13.3 % (11.8-14.3); White Blood Cell 7.4 10^3/uL (4.4-10.8)
[2024-10-05 20:47] LABS: Alanine Aminotransferase 23 U/L (7-40); Alkaline Phosphatase 64 U/L (46-116); Anion Gap 10 (5-15); Aspartate Aminotransferase 15 U/L (13-40); BUN/Creatinine Ratio 9.1 (10.0-20.0); Blood Urea Nitrogen 10 mg/dL (9-23); Carbon Dioxide 23 mmol/L (20-31); Glucose 94 mg/dL (74-106); Potassium 3.5 mmol/L (3.5-5.1); Sodium 141 mmol/L (136-145); Total Protein 7.6 g/dL (5.7-8.2)
[2024-10-05 20:48] LABS: Albumin 4.9 g/dL (3.2-4.8); Bilirubin, Total 0.6 mg/dL (0.2-1.0); Chloride 108 mmol/L (98-107)
--- NOTE | 2024-10-05 21:02 | DVH ---
EXAMINATION: Chest x-ray 1 view CLINICAL HISTORY: cp, sob COMPARISON: CHEST PORTABLE on DOS: 06/09/22 FINDINGS: Right lateral thorax partially excluded. No dominant consolidations in the visualized lung jones. No definite pleural effusions or pneumothor ax. The cardiomediastinal silhouette appears within normal limits given technique. IMPRESSION: No acute cardiopulmonary findings as visualized.
--- NOTE | 2024-10-06 01:42 | ECG ---
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
--- NOTE | 2024-10-06 01:43 | ECG ---
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
[2024-10-06 02:50] VITALS: PULSE 76; RESP 16; O2SAT 97
== END 2024-10-06 02:58 | disposition home or self-care (01) ==
LOC: ER 19:26
DX: R07.89 Other chest pain (principal); F41.0 Panic disorder [episodic paroxysmal anxiety]; Z88.8 Allergy status to other drugs, medicaments and biological substances
CPT/HCPCS: 36415; 71045; 80053; 84443; 84484; 85025; 86141; 93005

== ENCOUNTER 2024-10-21 10:18 | Emergency (ER) | payer OTHER ==
[~2024-10-21] VITALS: Ht 182.9 cm; Wt 98.7 kg
[2024-10-21] MEDS ORDERED: ALPRAZolam 0.5 MG TAB PO ONE (10:30)
--- NOTE | 2024-10-21 10:31 | ED.PDOC ---
History of Present Illness HPI Comments 23-year-old male with PMHx Anxiety, Gallstones presents with a chief complaint of chest pain x 40 minutes with associated SOB and anxiety. Patient states that his pain is localized to his left chest, nonradiating, describes as sharp and constant in timing, rates his pain a 8/10. Patient mentions that he had just woken up when onset of chest pain began. Patient reports that he feels SOB "like I cannot breathe". Patient is not on supplemental oxygen. Patient mentions that after he woke up with the pain, he began to feel anxious about it. No other symptoms or modifying factors present at this time. Chief Complaint: Chest Pain Time Seen by MD: 10:24 Reviewed Notes: Nurses Notes, Medications, Allergies Allergies: Coded Allergies: Iodine (Verified Allergy, Unknown, 08/11/24) Information Source: Patient Mode of Arrival: Ambulatory Severity: Moderate Timing: Minutes Duration: Since onset Prehospital treatment: None Past Medical History PAST MEDICAL HISTORY: Anxiety, Gallstones Surgical History: Denies all surgeries Family History Family History: Family hx of heart mee Social History Smoker: Non-Smoker Alcohol: Denies ETOH Use Drugs: Denies Drug Use Lives In: Home Constitutional: denies: chills, diaphoresis, fatigue, fever, malaise, sweats, weakness, others EENTM: denies: blurred vision, double vision, ear bleeding, ear discharge, ear drainage, ear pain, ear ringing, eye pain, eye redness, hearing loss, mouth pain, mouth swelling, nasal discharge, nose bleeding, nose congestion, nose pain, photophobia, tearing, throat pain, throat swelling, voice changes, others Respiratory: reports: SOB at rest; denies: cough, hemoptysis, orthopnea, shortness of breath, SOB with excertion, stridor, wheezing, others Cardiovascular: reports: chest pain; denies: dizzy spells, diaphoresis, Dyspnea on exertion, edema, irregular heart beat, left arm pain, lightheadedness, palpitations, PND, syncope, others Gastrointestinal: denies: abdomen distended, abdominal pain, blood streaked bowels, constipated, diarrhea, dysphagia, difficulty swallowing, hematemesis, melena, nausea, poor appetite, poor fluid intake, rectal bleeding, rectal pain, vomiting, others Genitourinary: denies: burning, dysuria, flank pain, frequency, hematuria, incontinence, penile discharge, penile sore, pain, testicle pain, testicle swelling, urgency, others Neurological: denies: dizziness, fainting, headache, left sided numbness, left sided weakness, numbness, paresthesia, pre-existing deficit, right sided numbness, right sided weakness, seizure, speech problems, tingling, tremors, weakness, others Musculoskeletal: denies: back pain, gout, joint pain, joint swelling, muscle pain, muscle stiffness, neck pain, others Integumetry: denies: bruises, change in color, change in hair/nails, dryness, laceration, lesions, lumps, rash, wounds, others Allergic/Immunocompromised: denies: Difficulty Healing, Frequent Infections, Hives, Itching, others Hematologic/Lymphatic: denies: anemia, blood clots, easy bleeding, easy bruising, swollen glands, others Endocrine: denies: excessive hunger, excessive sweating, excessive thirst, excessive urination, flushing, intolerance to cold, intolerance to heat, unexplained weight gain, unexplained weight loss, others Psychiatric: reports: anxiety; denies: bipolar disorder, depression, hopeless, panic disorder, schizophrenia, sleepless, suicidal, others All Other Systems: Reviewed and Negative Physical Exam General Appearance: Mild Distress HEENT: Normal ENT Inspection, Pharynx Normal, TMs Normal Neck: Full Range of Motion, Non-Tender, Normal, Normal Inspection Respiratory: Chest Non-Tender, Lungs Clear, No Accessory Muscle Use, No Respiratory Distress, Normal Breath Sounds Cardiovascular: No Edema, No JVD, No Murmur, No Gallop, Normal Peripheral Pulses, Regular Rate/Rhythm Breast Exam: Deferred Gastrointestinal: No Organomegaly, Non Tender, No Pulsatile Mass, Normal Bowel Sounds, Soft Genitalia: Deferred Pelvic: Deferred Rectal: Deferred Extremities: No calf tenderness, Normal capillary refill, Normal inspection, Normal range of motion, Non-tender, No pedal edema Musculoskeletal : Apperance: Normal Neurologic: Alert, director fundraising II-XII nml as Tested, No Motor Deficits, No Sensory Deficits, Other Cerebellar Function: Normal Reflexes: Normal Skin: Dry, Normal Color, Warm Lymphatic: No Adenopathy Was a procedure done? Was a procedure done?: No EKG EKG : Pulse Rate (adult): 66 [place]: Normal Cardiac Rhythm: NSR Block: None Hypertrophy: None ST: Normal Differential Dx Considerations may include: ACS, MO, anxiety, generalized weakness X-Ray, Labs, Meds, VS Vital Signs Date Time Temp Pulse Resp B/P (MAP) Pulse Ox O2 Delivery O2 Flow Rate FiO2 10/21/24 10:48 97.8 79 18 133/75 (94) 97 97.8 10/21/24 10:48 79 18 97 Room Air* 0 21 10/21/24 10:31 66 10/21/24 10:20 98.1 84 18 116/63 (80) 99 98.1 Lab Test 10/21/24 10:30 Range/Units White Blood Count 6.5 4.4-10.8 10^3/uL Red Blood Count 4.98 4.5-5.90 10^6/uL Hemoglobin 15.4 13.5-17.5 g/dL Hematocrit 43.3 41.0-53.0 % Mean Corpuscular Volume 86.9 80.0-100.0 fL Mean Corpuscular Hemoglobin 31.0 28.0-32.0 pg Mean Corpuscular Hemoglobin Concent 35.6 32.0-36.0 g/dL Red Cell Distribution Width 13.3 11.8-14.3 % Platelet Count 344 140-450 10^3/uL Mean Platelet Volume 7.7 6.9-10.8 fL Neutrophils (%) (Auto) 46.6 37.0-80.0 % Lymphocytes (%) (Auto) 41.5 10.0-50.0 % Monocytes (%) (Auto) 6.9 0.0-12.0 % Eosinophils (%) (Auto) 4.4 0.0-7.0 % Basophils (%) (Auto) 0.6 0.0-2.0 % Neutrophils # (Auto) 3.0 1.6-8.6 10 ^3/uL Lymphocytes # (Auto) 2.7 0.4-5.4 10 ^3/uL Monocytes # (Auto) 0.5 0-1.3 10 ^3/uL Eosinophils # (Auto) 0.3 0-0.8 10 ^3/uL Basophils # (Auto) 0 0-0.2 10 ^3/uL Nucleated Red Blood Cells 0.1 % D-Dimer, Quantitative < 0.19 0.0-0.49 mg/L FEU Sodium Level 141 136-145 mmol/L Potassium Level 3.9 3.5-5.1 mmol/L Chloride Level 108 H 98-107 mmol/L Carbon Dioxide Level 26 20-31 mmol/L Anion Gap 7 5-15 Blood Urea Nitrogen 11 9-23 mg/dL Creatinine 0.92 0.700-1.30 mg/dL Glomerular Filtration Rate Calc 121 >90 mL/min BUN/Creatinine Ratio 12.0 10.0-20.0 Serum Glucose 91 74-106 mg/dL Calcium Level 9.8 8.7-10.4 mg/dL Troponin I High Sensitivity < 3 L </=54 ng/L Current Medications Medications (Trade) Dose Ordered Sig/Anh Route Start Time Stop Time Status Last Admin Lorazepam (Ativan Tablet) 1 mg ONCE ONCE PO 10/21/24 11:00 10/21/24 11:01 DC 10/21/24 10:57 The patient was given Ativan 1 mg by mouth. The patient's CBC is within normal limits The chemistry panel is within normal limits The patient was D-dimer is negative. The patient states that he is feeling much better The patient was being discharged and will follow up with the primary care doctor The patient will return to the emergency department's the condition worsens. Time of 1ST Reevaluation: 10:54 Reevaluation 1ST: Unchanged Patient Education/Counseling: Diagnosis, Treatment, Prognosis, Need For Follow Up Family Education/Counseling: No Family Present Departure 1 Departure Time of Disposition: 11:23 Impression: Primary Impression: Atypical chest pain Additional Impression: Acute anxiety Disposition: 01 HOME / SELF CARE / HOMELESS Condition: Fair Discharged With: Self Critical Care Note Critical Care Time?: No Stability Stability form required: No Heart Score Heart Score: Heart Score Response (Comments) Value History N/A 0 EKG N/A 0 Age N/A 0 Risk Factors N/A 0 Troponin N/A 0 Total 0 I personally scribed for ADELINA ARMSTRONG MD ([email or web address]) on 10/21/24 at 10:31. Electronically submitted by Bryn Kuo [email or web address]). ADELINA ARMSTRONG MD Oct 21, 2024 10:31
[2024-10-21 10:40] LABS: Basophils # (auto) 0 10 ^3/uL (0-0.2); Basophils % (auto) 0.6 % (0.0-2.0); Eosinophils # (auto) 0.3 10 ^3/uL (0-0.8); Eosinophils % (auto) 4.4 % (0.0-7.0); Hematocrit 43.3 % (41.0-53.0); Hemoglobin 15.4 g/dL (13.5-17.5); Lymphocytes # (auto) 2.7 10 ^3/uL (0.4-5.4); Lymphocytes % (auto) 41.5 % (10.0-50.0); Mean Corpuscular Hgb Conc. 35.6 g/dL (32.0-36.0); Mean Corpuscular Volume 86.9 fL (80.0-100.0); Monocytes # (auto) 0.5 10 ^3/uL (0-1.3); Monocytes % (auto) 6.9 % (0.0-12.0); Neutrophils % (auto) 46.6 % (37.0-80.0); Nucleated Red Blood Cells % 0.1 %; Platelet Count (auto) 344 10^3/uL (140-450); Red Blood Cells 4.98 10^6/uL (4.5-5.90); Red Cell Distribution Width 13.3 % (11.8-14.3); White Blood Cell 6.5 10^3/uL (4.4-10.8)
[2024-10-21 10:48] VITALS: PULSE 79; RESP 18; TEMP 97.8; O2SAT 97
[2024-10-21 10:49] LABS: Potassium 3.9 mmol/L (3.5-5.1); Sodium 141 mmol/L (136-145)
[2024-10-21 10:50] LABS: Anion Gap 7 (5-15); Calcium 9.8 mg/dL (8.7-10.4); Carbon Dioxide 26 mmol/L (20-31)
[2024-10-21 10:55] LABS: Blood Urea Nitrogen 11 mg/dL (9-23); Glucose 91 mg/dL (74-106)
[2024-10-21 10:56] LABS: Chloride 108 mmol/L (98-107)
[2024-10-21] MEDS: LORazepam 0.5 MG TAB PO ONE (10:57)
[2024-10-21 12:05] VITALS: BP 137/82; PULSE 79; RESP 18; O2SAT 98
--- NOTE | 2024-10-22 09:04 | ECG ---
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
== END 2024-10-21 12:05 | disposition home or self-care (01) ==
LOC: ER 10:25
DX: R07.89 Other chest pain (principal); F41.9 Anxiety disorder, unspecified; Z91.041 Radiographic dye allergy status; Z88.8 Allergy status to other drugs, medicaments and biological substances
CPT/HCPCS: 36415; 80048; 84484; 85025; 85379; 93005

== ENCOUNTER 2025-02-11 15:34 | Emergency (ER) | payer OTHER ==
[~2025-02-11] VITALS: Ht 185.4 cm; Wt 101.9 kg
--- NOTE | 2025-02-11 16:17 | ED.PDOC ---
History of Present Illness HPI Comments 24-year-old male with no reported PMHx presents with a chief complaint of inflammation and drainage from his left distal ring finger. Patient mentions that he had a fever on 02/10/2025 but today is afebrile. Patient reports that the finger is painful and inflamed, and this morning had pus draining from the c uticle. Patient denies a specific trauma. Chief Complaint: Fever Time Seen by MD: 16:10 Primary Care Provider: NONE Reviewed Notes: Nurses Notes, Medications, Allergies Allergies: Coded Allergies: Iodine (Verified Allergy, Unknown, 08/11/24) Information Source: Patient Mode of Arrival: Ambulatory Severity: Moderate Timing: Days Duration: Since onset Prehospital treatment: None Past Medical History PAST MEDICAL HISTORY: Anxiety, Gallstones Surgical History: Denies all surgeries Family History Family History: Family hx of heart mee Social History Smoker: Non-Smoker Alcohol: Denies ETOH Use Drugs: Denies Drug Use Lives In: Home Constitutional: denies: chills, diaphoresis, fatigue, fever, malaise, sweats, weakness, others EENTM: denies: blurred vision, double vision, ear bleeding, ear discharge, ear drainage, ear pain, ear ringing, eye pain, eye redness, hearing loss, mouth pain, mouth swelling, nasal discharge, nose bleeding, nose congestion, nose pain, photophobia, tearing, throat pain, throat swelling, voice changes, others Respiratory: denies: cough, hemoptysis, orthopnea, SOB at rest, shortness of breath, SOB with excertion, stridor, wheezing, others Cardiovascular: denies: chest pain, dizzy spells, diaphoresis, Dyspnea on exertion, edema, irregular heart beat, left arm pain, lightheadedness, palpitations, PND, syncope, others Gastrointestinal: denies: abdomen distended, abdominal pain, blood streaked bowels, constipated, diarrhea, dysphagia, difficulty swallowing, hematemesis, melena, nausea, poor appetite, poor fluid intake, rectal bleeding, rectal pain, vomiting, others Genitourinary: denies: burning, dysuria, flank pain, frequency, hematuria, incontinence, penile discharge, penile sore, pain, testicle pain, testicle swelling, urgency, others Neurological: denies: dizziness, fainting, headache, left sided numbness, left sided weakness, numbness, paresthesia, pre-existing deficit, right sided numbness, right sided weakness, seizure, speech problems, tingling, tremors, weakness, others Musculoskeletal: reports: others (Cuticle pain at the left ring finger); denies: back pain, gout, joint pain, joint swelling, muscle pain, muscle stiffness, neck pain Integumetry: denies: bruises, change in color, change in hair/nails, dryness, laceration, lesions, lumps, rash, wounds, others Allergic/Immunocompromised: denies: Difficulty Healing, Frequent Infections, Hives, Itching, others Hematologic/Lymphatic: denies: anemia, blood clots, easy bleeding, easy bruisi ng, swollen glands, others Endocrine: denies: excessive hunger, excessive sweating, excessive thirst, exce ssive urination, flushing, intolerance to cold, intolerance to heat, unexplained weight gain, unexplained weight loss, others Psychiatric: denies: anxiety, bipolar disorder, depression, hopeless, panic disorder, schizophrenia, sleepless, suicidal, others All Other Systems: Reviewed and Negative ( PER HPI) Physical Exam General Appearance: Mild Distress (Moderate distress due to left finger concerns.), Normal HEENT: Normal ENT Inspection, Pharynx Normal, TMs Normal Neck: Full Range of Motion, Non-Tender, Normal, Normal Inspection Respiratory: Chest Non-Tender, Lungs Clear, No Accessory Muscle Use, No Respiratory Distress, Normal Breath Sounds Cardiovascular: No Edema, No JVD, No Murmur, No Gallop, Normal Peripheral Puls es, Regular Rate/Rhythm Breast Exam: Deferred Gastrointestinal: No Organomegaly, Non Tender, No Pulsatile Mass, Normal Bowel Sounds, Soft Genitalia: Deferred Pelvic: Deferred Rectal: Deferred Extremities: Other (Patient displays a paronychia of the distal left ring finger. Erythema and edema noted. Wound appears to have drained.) Musculoskeletal : Apperance: Normal Neurologic: Alert, No Motor Deficits, Normal Affect, Normal Mood, No Sensory Deficits Cerebellar Function: Normal Reflexes: Normal Skin: Dry, Normal Color, Warm Lymphatic: No Adenopathy Was a procedure done? Was a procedure done?: No Differential Dx Considerations may include: paronychia X-Ray, Labs, Meds, VS Vital Signs Date Time Temp Pulse Resp B/P (MAP) Pulse Ox O2 Delivery O2 Flow Rate FiO2 02/11/25 15:53 98.2 99 16 130/78 (95) 97 98.2 X-Ray, Labs, Meds, VS Comment Discuss the condition with the patient. Advised patient utilize warm soaks as well as antibiotics as directed. Patient as needed. Time of 1ST Reevaluation: 17:12 Reevaluation 1ST: Improved Consultation: PCP Patient Education/Counseling: Diagnosis, Treatment, Need For Follow Up Family Education/Counseling: Diagnosis, Treatment, No Family Present SEPSIS Sepsis Screen Date sepsis recognized/suspect: Feb 11, 2025 Time Sepsis recognized/suspect: 1546 Recent Procedure: No On Antibiotic Therapy: No Respiratory Rate >20: No Heart Rate >90: Yes Temp<36 C (96.8 F) or >38.3 C: No SBP <90 or MAP <65 mmHG: No New Acute Mental Status Change: No Is the patient on CPAP, BIPAP,: No Physician Orders Covid19 Antigen Magalie (02/11/25 ) Rapid Influenza A&B (02/11/25 15:41) Vital Signs Date Time Temp Pulse Resp B/P (MAP) Pulse Ox O2 Delivery O2 Flow Rate FiO2 02/11/25 15:53 98.2 99 16 130/78 (95) 97 98.2 Departure 1 Departure Time of Disposition: 17:13 Impression: Primary Impression: Paronychia Disposition: 01 HOME / SELF CARE / HOMELESS Condition: Stable Additional Instructions: Advise utilizing topical and oral antibiotics as directed as well as pain medication as needed. e-Prescriptions Ibuprofen Micronized (Ibuprofen) 800 Mg Tab 800 MG PO Q8HP PRN, #20 TAB Prov: YARED KELLY PAC 02/11/25 Cephalexin (KEFLEX CAPSULE) 250 Mg Cp 1 CAP PO QID for 7 Days, #28 CAP Prov: YARED KELLY PAC 02/11/25 Bacitracin Base (Bacitracin) 500 Unit/Gm Oin 500 UNIT OP BID for 9 Days, #30 GM Prov: YARED KELLY PAC 02/11/25 Discharged With: Self, Friend Critical Care Note Critical Care Time?: No Stability Stability form required: No Heart Score Heart Score: Heart Score Response (Comments) Value History N/A 0 EKG N/A 0 Age N/A 0 Risk Factors N/A 0 Troponin N/A 0 Total 0 I personally scribed for YARED KELLY PAC ([email or web address]) on 02/11/25 at 16:17. Electronically submitted by Bryn Kuo [email or web address]). YARED KELLY PAC Feb 11, 2025 16:17
[2025-02-11] MEDS ORDERED: IBUP-1455 PO (17:14)
[2025-02-11] MEDS ORDERED: BACIOIN15 OP (17:14)
[2025-02-11] MEDS ORDERED: CEPH250C PO (17:14)
[2025-02-11 17:39] VITALS: BP 116/72; PULSE 87; RESP 18; TEMP 98.1; O2SAT 97
== END 2025-02-11 17:41 | disposition home or self-care (01) ==
LOC: ER 15:34
DX: L03.011 Cellulitis of right finger (principal); F41.9 Anxiety disorder, unspecified; Z88.8 Allergy status to other drugs, medicaments and biological substances

== ENCOUNTER 2025-02-22 22:33 | Emergency (ER) | payer OTHER ==
[~2025-02-22] VITALS: Ht 185.4 cm; Wt 101.0 kg
[~2025-02-22 22:33] MED LIST: BACIOIN15 OP; CEPH250C PO; IBUP-1455 PO
--- NOTE | 2025-02-22 23:12 | ED.PDOC ---
History of Present Illness HPI Comments 24 y/o M presents with c/c fever, dizziness, generalized bodyaches and weakness, nausea, vomiting, and diarrhea. Patient reports on sudden, unprovoked, and atraumatic onset of symptoms at around 1300, this evening. Recorded at home temperature of 102.7F. No previous history of similar events with symptoms a longside any recent life stressors, strenuous activities, sick contact, substance use, injuries, or lifestyle changes. He reports taking 1000mg Tylenol and 800mg Ibuprofen 45x minutes prior to arrival. Significant history for anxiety, gallstones, and previous Covid19 infections. Denies any abdominal pain, bloody or bilious vomitus, bloody stools, urinary symptoms, cough, congestion, chills, or further associated symptoms. Upon arrival to ED triage, patient had a temperature of 98.1F. Chief Complaint: Flu like Time Seen by MD: 22:45 Primary Care Provider: NONE Reviewed Notes: Nurses Notes, Medications, Allergies Allergies: Coded Allergies: Iodine (Verified Allergy, Unknown, 08/11/24) Home Meds Active Scripts Ondansetron HCl (Ondansetron Hydrochloride) 8 Mg Tab, 8 MG PO Q6HP PRN, #30 TAB Prov:MICHELL FRANKLIN MD 02/22/25 Ibuprofen Micronized (Ibuprofen) 800 Mg Tab, 800 MG PO Q8HP PRN, #20 TAB Prov:YARED KELLY 02/11/25 Cephalexin (KEFLEX CAPSULE) 250 Mg Cp, 1 CAP PO QID for 7 Days, #28 CAP Prov:YARED KELLY 02/11/25 Bacitracin Base (Bacitracin) 500 Unit/Gm Oin, 500 UNIT OP BID for 9 Days, #30 GM Prov:YARED KELLY PAC 02/11/25 Information Source: Patient Mode of Arrival: Ambulatory Severity: Moderate Timing: Hours Duration: Since onset Prehospital treatment: Pain Meds (1000mg Tylenol and 800mg Ibuprofen) Past Medical History PAST MEDICAL HISTORY: Anxiety, Gallstones Past Medical History (Other): History of Covid19 infections Surgical History: Denies all surgeries Family History Family History: Family hx of heart mee Social History Smoker: Non-Smoker Alcohol: Denies ETOH Use Drugs: Denies Drug Use Lives In: Home All Other Systems: Reviewed and Negative (Comprehensive systems review obtained and negative except for what is stated in the HPI.) Physical Exam General Appearance: No Apparent Distress, Normal HEENT: Normal ENT Inspection, Pharynx Normal, TMs Normal Neck: Full Range of Motion, Non-Tender, Normal, Normal Inspection Respiratory: Chest Non-Tender, Lungs Clear, No Accessory Muscle Use, No Respiratory Distress, Normal Breath Sounds Cardiovascular: No Edema, No JVD, No Murmur, No Gallop, Normal Peripheral Pulses, Regular Rate/Rhythm Breast Exam: Deferred Gastrointestinal: No Organomegaly, Non Tender, No Pulsatile Mass, Normal Bowel Sounds, Soft Genitalia: Deferred Pelvic: Deferred Rectal: Deferred Extremities: No calf tenderness, Normal capillary refill, Normal inspection, Normal range of motion, Non-tender, No pedal edema Musculoskeletal : Apperance: Normal Neurologic: Alert, economic consultant II-XII nml as Tested, No Motor Deficits, Normal Affect, Normal Mood, No Sensory Deficits Cerebellar Function: Normal Reflexes: Normal Skin: Dry, Normal Color, Warm Lymphatic: No Adenopathy Was a procedure done? Was a procedure done?: No EKG EKG : Pulse Rate (adult): 81 [place]: Normal Cardiac Rhythm: NSR Block: None Hypertrophy: None ST: Normal Differential Dx Considerations may include: viral syndrome, URI, PNA, gastritis, gastroenteritis, spoiled food, dehydration, electrolyte imbalance, acute vertigo, among others X-Ray, Labs, Meds, VS Vital Signs Date Time Temp Pulse Resp B/P (MAP) Pulse Ox O2 Delivery O2 Flow Rate FiO2 02/23/25 00:35 Room Air* 0 21 02/23/25 00:32 97.9 60 16 121/71 (88) 97 97.9 02/22/25 23:12 81 02/22/25 22:45 98.1 75 18 129/77 (94) 99 98.1 Lab Test 02/22/25 23:03 02/22/25 22:54 Range/Units White Blood Count 8.2 4.4-10.8 10^3/uL Red Blood Count 4.98 4.5-5.90 10^6/uL Hemoglobin 15.4 13.5-17.5 g/dL Hematocrit 42.8 41.0-53.0 % Mean Corpuscular Volume 86.0 80.0-100.0 fL Mean Corpuscular Hemoglobin 31.0 28.0-32.0 pg Mean Corpuscular Hemoglobin Concent 36.0 32.0-36.0 g/dL Red Cell Distribution Width 12.5 11.8-14.3 % Platelet Count 416 140-450 10^3/uL Mean Platelet Volume 8.0 6.9-10.8 fL Neutrophils (%) (Auto) 65.1 37.0-80.0 % Lymphocytes (%) (Auto) 25.7 10.0-50.0 % Monocytes (%) (Auto) 6.6 0.0-12.0 % Eosinophils (%) (Auto) 1.9 0.0-7.0 % Basophils (%) (Auto) 0.7 0.0-2.0 % Neutrophils # (Auto) 5.3 1.6-8.6 10 ^3/uL Lymphocytes # (Auto) 2.1 0.4-5.4 10 ^3/uL Monocytes # (Auto) 0.5 0-1.3 10 ^3/uL Eosinophils # (Auto) 0.2 0-0.8 10 ^3/uL Basophils # (Auto) 0.1 0-0.2 10 ^3/uL Nucleated Red Blood Cells 0.1 % Sodium Level 141 136-145 mmol/L Potassium Level 3.4 L 3.5-5.1 mmol/L Chloride Level 107 98-107 mmol/L Carbon Dioxide Level 23 20-31 mmol/L Anion Gap 11 5-15 Blood Urea Nitrogen 11 9-23 mg/dL Creatinine 0.87 0.700-1.30 mg/dL Glomerular Filtration Rate Calc 124 >90 mL/min BUN/Creatinine Ratio 12.6 10.0-20.0 Serum Glucose 97 74-106 mg/dL Lactic Acid Level 1.6 0.4-2.0 mmol/L Calcium Level 10.0 8.7-10.4 mg/dL Total Bilirubin 0.5 0.2-1.0 mg/dL Aspartate Amino Transferase (AST) 20 13-40 U/L Alanine Aminotransferase (ALT) 27 7-40 U/L Alkaline Phosphatase 66 46-116 U/L Total Protein 7.5 5.7-8.2 g/dL Albumin 5.1 H 3.2-4.8 g/dL Influenza Type A Antigen Negative Negative Influenza Type B Antigen Negative Negative SARS-CoV-2 Antigen (Rapid) Negative NEGATIVE Time of 1ST Reevaluation: 23:15 Reevaluation 1ST: Unchanged Patient Education/Counseling: Diagnosis, Treatment, Need For Follow Up Family Education/Counseling: No Family Present SEPSIS Sepsis Screen Date sepsis recognized/suspect: Feb 22, 2025 Time Sepsis recognized/suspect: 2244 Recent Procedure: No On Antibiotic Therapy: No Respiratory Rate >20: No Heart Rate >90: No Temp<36 C (96.8 F) or >38.3 C: No SBP <90 or MAP <65 mmHG: No New Acute Mental Status Change: No Is the patient on CPAP, BIPAP,: No Vital Signs Date Time Temp Pulse Resp B/P (MAP) Pulse Ox O2 Delivery O2 Flow Rate FiO2 02/23/25 00:35 Room Air* 0 21 02/23/25 00:32 97.9 60 16 121/71 (88) 97 97.9 02/22/25 23:12 81 02/22/25 22:45 98.1 75 18 129/77 (94) 99 98.1 Laboratory Tests Test 02/22/25 23:03 Lactic Acid Level 1.6 mmol/L (0.4-2.0) White Blood Count 8.2 10^3/uL (4.4-10.8) Departure 1 Departure Time of Disposition: 01:00 Impression: Primary Impression: Viral syndrome Disposition: 01 HOME / SELF CARE / HOMELESS Condition: Fair e-Prescriptions Ondansetron HCl (Ondansetron Hydrochloride) 8 Mg Tab 8 MG PO Q6HP PRN, #30 TAB Prov: MICHELL FRANKLIN MD 02/22/25 Discharged With: Self Critical Care Note Critical Care Time?: No Stability Stability form required: No Heart Score Heart Score: Heart Score Response (Comments) Value History N/A 0 EKG N/A 0 Age N/A 0 Risk Factors N/A 0 Troponin N/A 0 Total 0 I personally scribed for MICHELL FRANKLIN MD ([email or web address]) on 02/22/25 at 23:12. Marcelina ctronically submitted by Demetrius Carrero ([email or web address]). MICHELL FRANKLIN MD Feb 22, 2025 23:12
[2025-02-22 23:15] LABS: Hematocrit 42.8 % (41.0-53.0); Hemoglobin 15.4 g/dL (13.5-17.5); Mean Corpuscular Hemoglobin 31.0 pg (28.0-32.0); Mean Corpuscular Volume 86.0 fL (80.0-100.0); Nucleated Red Blood Cells % 0.1 %
[2025-02-22 23:35] LABS: Alanine Aminotransferase 27 U/L (7-40); Alkaline Phosphatase 66 U/L (46-116); Anion Gap 11 (5-15); BUN/Creatinine Ratio 12.6 (10.0-20.0); Bilirubin, Total 0.5 mg/dL (0.2-1.0); Blood Urea Nitrogen 11 mg/dL (9-23); Calcium 10.0 mg/dL (8.7-10.4); Carbon Dioxide 23 mmol/L (20-31); Chloride 107 mmol/L (98-107); Glucose 97 mg/dL (74-106); Sodium 141 mmol/L (136-145); Total Protein 7.5 g/dL (5.7-8.2)
[2025-02-22 23:36] LABS: Albumin 5.1 g/dL (3.2-4.8); Potassium 3.4 mmol/L (3.5-5.1)
[2025-02-22 23:39] LABS: COVID19 ANTIGEN SOFIA FIA NEGATIVE (NEGATIVE)
[2025-02-22] MEDS ORDERED: ONDA-180 PO (23:50)
[2025-02-23 00:32] VITALS: BP 121/71; PULSE 60; RESP 16; TEMP 97.9; O2SAT 97
[2025-02-23] MEDS: ONDANSETRON ODT 4 MG TAB PO ONE (00:36)
== END 2025-02-23 00:36 | disposition home or self-care (01) ==
LOC: ER 22:33
DX: B34.9 Viral infection, unspecified (principal); F41.9 Anxiety disorder, unspecified; Z86.16 Personal history of COVID-19; Z88.8 Allergy status to other drugs, medicaments and biological substances; Z79.899 Other long term (current) drug therapy; Z20.822 Contact with and (suspected) exposure to COVID-19
CPT/HCPCS: 36415; 80053; 83605; 85025; 87426; 87804

== ENCOUNTER 2025-03-22 17:53 | Emergency (ER) | payer OTHER ==
[~2025-03-22] VITALS: Ht 182.9 cm; Wt 90.9 kg
[~2025-03-22 17:53] MED LIST changes: +ONDA-180 PO
--- NOTE | 2025-03-22 20:08 | ED.PDOC ---
Psychiatric HPI Comments 24y M who presents to the ED for chief complaint of anxiety. [place] and states he started to feel anxious and felt he was going to pass out. Pt states he continued to feel anxious and felt he was having heart attack and came to the ED for further evaluation. Pt in the ED, noted to be anxious and states he is also stressed due to recent of son. Pt has noted history of anxiety but states due to his doctor passing away, he has not seen a physician and states he would like a prescription of Zoloft 100 mg daily that he has not taken for one month. Pt has noted heart rate of 106 but otherwise stable vitals in the ED. Pt denies any other symptoms at this time. Chief Complaint: Anxiety Time Seen by MD: 20:00 Primary Care Provider: NONE Reviewed Notes: Medications, Allergies Information Source: Patient Mode of Arrival: Ambulatory Past Medical History PAST MEDICAL HISTORY: Anxiety, Gallstones Surgical History: Denies all surgeries Family History Family History: Family hx of heart mee Social History Smoker: Non-Smoker Alcohol: Denies ETOH Use Drugs: Denies Drug Use Lives In: Home Constitutional: denies: chills, diaphoresis, fatigue, fever, malaise, sweats, weakness, others EENTM: denies: blurred vision, double vision, ear bleeding, ear discharge, ear drainage, ear pain, ear ringing, eye pain, eye redness, hearing loss, mouth pain, mouth swelling, nasal discharge, nose bleeding, nose congestion, nose pain, photophobia, tearing, throat pain, throat swelling, voice changes, others Respiratory: denies: cough, hemoptysis, orthopnea, SOB at rest, shortness of breath, SOB with excertion, stridor, wheezing, others Cardiovascular: denies: chest pain, dizzy spells, diaphoresis, Dyspnea on exertion, edema, irregular heart beat, left arm pain, lightheadedness, palpitations, PND, syncope, others Gastrointestinal: denies: abdomen distended, abdominal pain, blood streaked bowels, constipated, diarrhea, dysphagia, difficulty swallowing, hematemesis, melena, nausea, poor appetite, poor fluid intake, rectal bleeding, rectal pain, vomiting, others Genitourinary: denies: burning, dysuria, flank pain, frequency, hematuria, incontinence, penile discharge, penile sore, pain, testicle pain, testicle swelling, urgency, others Neurological: denies: dizziness, fainting, headache, left sided numbness, left sided weakness, numbness, paresthesia, pre-existing deficit, right sided numbness, right sided weakness, seizure, speech problems, tingling, tremors, weakness, others Musculoskeletal: denies: back pain, gout, joint pain, joint swelling, muscle pain, muscle stiffness, neck pain, others Integumetry: denies: bruises, change in color, change in hair/nails, dryness, laceration, lesions, lumps, rash, wounds, others Allergic/Immunocompromised: denies: Difficulty Healing, Frequent Infections, Hives, Itching, others Hematologic/Lymphatic: denies: anemia, blood clots, easy bleeding, easy bruising, swollen glands, others Endocrine: denies: excessive hunger, excessive sweating, excessive thirst, excessive urination, flushing, intolerance to cold, intolerance to heat, unexplained weight gain, unexplained weight loss, others Psychiatric: reports: anxiety; denies: bipolar disorder, depression, hopeless, panic disorder, schizophrenia, sleepless, suicidal, others All Other Systems: Reviewed and Negative Physical Exam General Appearance: No Apparent Distress, Normal HEENT: Normal ENT Inspection, Pharynx Normal, TMs Normal Neck: Full Range of Motion, Non-Tender, Normal, Normal Inspection Respiratory: Chest Non-Tender, Lungs Clear, No Accessory Muscle Use, No Respiratory Distress, Normal Breath Sounds Cardiovascular: No Edema, No JVD, No Murmur, No Gallop, Normal Peripheral Pulses, Regular Rate/Rhythm Breast Exam: Deferred Gastrointestinal: No Organomegaly, Non Tender, No Pulsatile Mass, Normal Bowel Sounds, Soft Genitalia: Deferred Pelvic: Deferred Rectal: Deferred Extremities: No calf tenderness, Normal capillary refill, Normal inspection, Normal range of motion, Non-tender, No pedal edema Musculoskeletal : Apperance: Normal Neurologic: Alert, rate inserter II-XII nml as Tested, No Motor Deficits, Normal Affect, Normal Mood, No Sensory Deficits Cerebellar Function: Normal Reflexes: Normal Skin: Dry, Normal Color, Warm Lymphatic: No Adenopathy Was a procedure done? Was a procedure done?: No Psych Differential Dx Psych. Differential Dx: Anxiety, Depression, Panic Disorder Intoxication Differential Dx: Dehydration, Depression, Intoxication X-Ray, Labs, Meds, VS Vital Signs Date Time Temp Pulse Resp B/P (MAP) Pulse Ox O2 Delivery O2 Flow Rate FiO2 03/22/25 21:08 98.3 72 16 132/68 (89) 97 98.3 03/22/25 17:55 98.1 106 24 114/70 97 98.1 Lab Test 03/22/25 20:02 03/22/25 19:29 Range/Units White Blood Count 9.6 4.4-10.8 10^3/uL Red Blood Count 5.19 4.5-5.90 10^6/uL Hemoglobin 16.2 13.5-17.5 g/dL Hematocrit 45.0 41.0-53.0 % Mean Corpuscular Volume 86.7 80.0-100.0 fL Mean Corpuscular Hemoglobin 31.3 28.0-32.0 pg Mean Corpuscular Hemoglobin Concent 36.1 H 32.0-36.0 g/dL Red Cell Distribution Width 12.8 11.8-14.3 % Platelet Count 443 140-450 10^3/uL Mean Platelet Volume 8.2 6.9-10.8 fL Neutrophils (%) (Auto) 71.9 37.0-80.0 % Lymphocytes (%) (Auto) 21.3 10.0-50.0 % Monocytes (%) (Auto) 4.7 0.0-12.0 % Eosinophils (%) (Auto) 1.4 0.0-7.0 % Basophils (%) (Auto) 0.7 0.0-2.0 % Neutrophils # (Auto) 6.9 1.6-8.6 10 ^3/uL Lymphocytes # (Auto) 2.1 0.4-5.4 10 ^3/uL Monocytes # (Auto) 0.5 0-1.3 10 ^3/uL Eosinophils # (Auto) 0.1 0-0.8 10 ^3/uL Basophils # (Auto) 0.1 0-0.2 10 ^3/uL Nucleated Red Blood Cells 0.2 % Sodium Level 142 136-145 mmol/L Potassium Level 4.1 3.5-5.1 mmol/L Chloride Level 105 98-107 mmol/L Carbon Dioxide Level 28 20-31 mmol/L Anion Gap 9 5-15 Blood Urea Nitrogen 9 9-23 mg/dL Creatinine 1.00 0.700-1.30 mg/dL Glomerular Filtration Rate Calc 108 >90 mL/min BUN/Creatinine Ratio 9.0 L 10.0-20.0 Serum Glucose 96 74-106 mg/dL Calcium Level 10.1 8.7-10.4 mg/dL Urine Color Pending Urine Clarity Pending Urine pH Pending Urine Specific [place] Pending Urine Protein Pending Urine Ketones Pending Urine Blood Pending Urine Nitrite Pending Urine Bilirubin Pending Urine Urobilinogen Pending Urine Leukocyte Esterase Pending Urine RBC Pending Urine Microscopic WBC Pending Urine Squamous Epithelial Cells Pending Urine Bacteria Pending Urine Glucose Pending X-Ray, Labs, Meds, VS Comment 24-year-old male with a history of anxiety here today with a anxiety attack. Vitals initially notable for tachycardia which resolved after patient relaxed in the waiting room. Labs overall unremarkable. EKG without evidence of acute ischemia. I had a long discussion with the patient about healthy ways to manage his anxiety and he is currently in the process of getting a psychiatrist. I prescribed the patient a refill of his Zoloft medication as per his request as he has been out of it for approximately one month and states that it was working very well for him. No suicidal or homicidal thoughts. No hallucinations. Patient instructed to follow up with the primary care provider/psychiatrist/therapist within 2-3 days for re-evaluation. Patient was discharged home in stable condition ambulating with a steady gait in no distress. Return precautions provided for suicidal or homicidal thoughts, hallucinations, or any other new or concerning symptoms. Time of 1ST Reevaluation: 21:00 Reevaluation 1ST: Unchanged Time of 2ND Reevaluation: 21:24 Reevaluation 2ND: Resolved Patient Education/Counseling: Diagnosis, Treatment Family Education/Counseling: No Family Present Departure 1 Departure Time of Disposition: 21:25 Impression: Primary Impression: Anxiety attack Disposition: HOME / SELF CARE / HOMELESS Condition: Stable e-Prescriptions Sertraline Hcl (Sertraline Hcl) 100 Mg Tab 1 TAB PO DAILY for 30 Days, #30 TAB Prov: BHASKAR MCLEOD MD 03/22/25 Discharged With: Self Critical Care Note Critical Care Time?: No Stability Stability form required: No Heart Score Heart Score: Heart Score Response (Comments) Value History N/A 0 EKG N/A 0 Age N/A 0 Risk Factors N/A 0 Troponin N/A 0 Total 0 I personally scribed for BHASKAR MCLEOD MD ([email or web address]) on 03/22/25 at 20:08. Electronically submitted by Louis Mckinnon ([facility] BHASKAR MCLEOD MD Mar 22, 2025 20:08
[2025-03-22 20:43] LABS: Hematocrit 45.0 % (41.0-53.0); Hemoglobin 16.2 g/dL (13.5-17.5); Mean Corpuscular Hemoglobin 31.3 pg (28.0-32.0); Mean Corpuscular Volume 86.7 fL (80.0-100.0); Nucleated Red Blood Cells % 0.2 %
[2025-03-22 20:49] LABS: Chloride 105 mmol/L (98-107); Potassium 4.1 mmol/L (3.5-5.1); Sodium 142 mmol/L (136-145)
[2025-03-22 20:50] LABS: Anion Gap 9 (5-15); Carbon Dioxide 28 mmol/L (20-31)
[2025-03-22 20:51] LABS: Calcium 10.1 mg/dL (8.7-10.4)
[2025-03-22 20:55] LABS: Glucose 96 mg/dL (74-106)
[2025-03-22 20:56] LABS: BUN/Creatinine Ratio 9.0 (10.0-20.0); Blood Urea Nitrogen 9 mg/dL (9-23)
[2025-03-22 21:08] VITALS: BP 132/68; PULSE 72; RESP 16; TEMP 98.3; O2SAT 97
[2025-03-22] MEDS ORDERED: SERT-160 PO (21:22)
[2025-03-22 21:24] LABS: Urine Protein, UAD Negative (Negative)
== END 2025-03-22 22:37 | disposition home or self-care (01) ==
LOC: ER 17:56
DX: F41.9 Anxiety disorder, unspecified (principal)
CPT/HCPCS: 36415; 80048; 81001; 85025

== ENCOUNTER 2025-06-06 01:55 | Emergency (ER) | payer OTHER ==
[~2025-06-06] VITALS: Ht 182.9 cm; Wt 106.3 kg
[2025-06-06] MEDS ORDERED: AUG875T PO (06:41)
[2025-06-06] MEDS ORDERED: IBUP1TAB5 PO (06:41)
--- NOTE | 2025-06-06 06:41 | ED.PDOC ---
Eye-HPI HPI Comments This is a 24-year-old male that comes in who has had throat pain since yesterday afternoon approximately at 4:00 a.m.. He states he has noticed that they have really got enlarged and some white discoloration in the back. States it is painful to swallow. He has also had and chills, patient feels that his neck has been swollen as well. Chief Complaint: Sore Throat Time Seen by MD: 06:35 Primary Care Provider: NONE Reviewed Notes: Nurses Notes, Medications, Allergies Allergies: Coded Allergies: Iodine (Verified Allergy, Unknown, 08/11/24) Home Meds Active Scripts Ondansetron HCl (Ondansetron Hydrochloride) 8 Mg Tab, 8 MG PO Q6HP PRN, #30 TAB Prov:MICHELL FRANKLIN MD 02/22/25 Ibuprofen Micronized (Ibuprofen) 800 Mg Tab, 800 MG PO Q8HP PRN, #20 TAB Prov:YARED KELLY PAC 02/11/25 Cephalexin (KEFLEX CAPSULE) 250 Mg Cp, 1 CAP PO QID for 7 Days, #28 CAP Prov:YARED KELLY PAC 02/11/25 Bacitracin Base (Bacitracin) 500 Unit/Gm Oin, 500 UNIT OP BID for 9 Days, #30 GM Prov:YARED KELLY PAC 02/11/25 Mode of Arrival: Ambulatory Past Medical History PAST MEDICAL HISTORY: Anxiety, Gallstones Surgical History: Denies all surgeries Family History Family History: Family hx of heart mee Social History Smoker: Non-Smoker Alcohol: Denies ETOH Use Drugs: Denies Drug Use Lives In: Home Constitutional: reports: chills, fever EENTM: reports: throat pain, throat swelling, voice changes Respiratory: reports: cough, others (Green productive mucus) All Other Systems: Reviewed and Negative Physical Exam General Appearance: No Apparent Distress, None HEENT: Pharyngeal Erythema, TMs Normal, Tonsillar Exudate Neck: Full Range of Motion, Lymphadenopathy (R), Lymphadenopathy (L) Respiratory: Lungs Clear, Normal Breath Sounds Cardiovascular: Regular Rate/Rhythm Breast Exam: Deferred Gastrointestinal: Non Tender, Soft Genitalia: Deferred Pelvic: Deferred Rectal: Deferred Extremities: Normal inspection, Normal range of motion, Non-tender Neurologic: Alert, Normal Mood Cerebellar Function: NOT DONE Reflexes: NOT DONE Skin: Dry, Warm Lymphatic: Cervical Adenopathy (L), Cervical Adenopathy (R) Was a procedure done? Was a procedure done?: No EENT DIFF Eye: N/A Sore Throat: URI X-Ray, Labs, Meds, VS Vital Signs Date Time Temp Pulse Resp B/P (MAP) Pulse Ox O2 Delivery O2 Flow Rate FiO2 06/06/25 06:03 98.3 107 20 114/76 (89) 98 98.3 06/06/25 06:03 107 20 97 Room Air 06/06/25 01:56 99.6 105 16 133/88 99 99.6 X-Ray, Labs, Meds, VS Comment Patient seen and examined by me. Patient does have tonsillitis most likely strep. I will give him antibiotics as well as anti-inflammatories to go home. Patient will be instructed drink lots of liquids follow up outpatient with his regular doctor in the next one or two days.. Time of 1ST Reevaluation: 06:39 Reevaluation 1ST: Unchanged Patient Education/Counseling: Diagnosis, Treatment, Prognosis, Need For Follow Up Family Education/Counseling: No Family Present SEPSIS Sepsis Screen Date sepsis recognized/suspect: Jun 06, 2025 Time Sepsis recognized/suspect: 605 Recent Procedure: No On Antibiotic Therapy: No Respiratory Rate >20: No Heart Rate >90: Yes Temp<36 C (96.8 F) or >38.3 C: No SBP <90 or MAP <65 mmHG: No New Acute Mental Status Change: No Is the patient on CPAP, BIPAP,: No Vital Signs Date Time Temp Pulse Resp B/P (MAP) Pulse Ox O2 Delivery O2 Flow Rate FiO2 06/06/25 06:03 98.3 107 20 114/76 (89) 98 98.3 06/06/25 06:03 107 20 97 Room Air 06/06/25 01:56 99.6 105 16 133/88 99 99.6 Departure 1 Departure Time of Disposition: 06:39 Impression: Primary Impression: Tonsillitis Disposition: 01 HOME / SELF CARE / HOMELESS Condition: Good Additional Instructions: Finish antibiotics as directed Take the anti-inflammatories pus antibiotics until they are completed Rest, drink lots of liquids e-Prescriptions Ibuprofen Micronized (Ibuprofen) 600 Mg Tab 600 MG PO Q6HPRN PRN for 5 Days, #20 TAB Prov: DESHAWN SMITH CREAM RIPENER 06/06/25 Amoxicillin & Pot Clavulanate (AUGMENTIN TABLET) 875 Mg Tb 875 MG PO BID for 10 Days, #20 TAB Prov: DESHAWN SMITH 06/06/25 Discharged With: Self Critical Care Note Critical Care Time?: No Stability Stability form required: DESHAWN Rosas Jun 06, 2025 06:41
[2025-06-06 07:29] VITALS: BP 138/78; PULSE 77; RESP 16; TEMP 98.7; O2SAT 96
== END 2025-06-06 07:30 | disposition home or self-care (01) ==
LOC: ER 01:55
DX: J03.90 Acute tonsillitis, unspecified (principal); F41.9 Anxiety disorder, unspecified; Z79.899 Other long term (current) drug therapy; Z88.8 Allergy status to other drugs, medicaments and biological substances

== ENCOUNTER 2025-06-07 11:07 | Inpatient (IN) | payer OTHER ==
[~2025-06-07] VITALS: Ht 188 cm; Wt 105.1 kg
[~2025-06-07 11:07] MED LIST changes: +AUG875T PO; +IBUP1TAB5 PO
--- NOTE | 2025-06-07 11:26 | ED.PDOC ---
Eye-HPI HPI Comments 24 year old male with PMHx Anxiety, presents to the ED with a chief compliant of sore throat onset 4 days. Patient began experiencing sore throat 4 days ago, was seen in this ED yesterday (06/06/25), prescribed Amoxicillin for Tonsillitis, started course last night. Patient states he noticed sore throat, throat swelling worsened this morning, difficulty swallowing, returned to ED. Currently rates pain 10/10. Denies fever, chills, hemoptysis, dizziness, nausea, vomiting, diarrhea, chest pain. No other symptoms or modifying factors present at this time. Chief Complaint: Sore Throat Time Seen by MD: 11:20 Primary Care Provider: NONE Reviewed Notes: Medications, Allergies Allergies: Coded Allergies: Iodine (Verified Allergy, Unknown, 08/11/24) Home Meds Active Scripts Ibuprofen Micronized (Ibuprofen) 600 Mg Tab, 600 MG PO Q6HPRN PRN for 5 Days, #20 TAB Prov:DESHAWN SMITH SHIELD INSTALLER 06/06/25 Amoxicillin & Pot Clavulanate (AUGMENTIN TABLET) 875 Mg Tb, 875 MG PO BID for 10 Days, #20 TAB Prov:DESHAWN SMITH SHIELD INSTALLER 06/06/25 Ondansetron HCl (Ondansetron Hydrochloride) 8 Mg Tab, 8 MG PO Q6HP PRN, #30 TAB Prov:MICHELL FRANKLIN MD 02/22/25 Ibuprofen Micronized (Ibuprofen) 800 Mg Tab, 800 MG PO Q8HP PRN, #20 TAB Prov:YARED KELLY PAC 02/11/25 Cephalexin (KEFLEX CAPSULE) 250 Mg Cp, 1 CAP PO QID for 7 Days, #28 CAP Prov:YARED KELLY PAC 02/11/25 Bacitracin Base (Bacitracin) 500 Unit/Gm Oin, 500 UNIT OP BID for 9 Days, #30 GM Prov:YARED KELLY PAC 02/11/25 Information Source: Patient Mode of Arrival: Ambulatory Timing: Days Duration: Since onset Prehospital treatment: None Onset: Spontaneous Throat Exposed to: None History of: None Modifying factors: Nothing Associated signs and symptoms: Sore Throat Past Medical History PAST MEDICAL HISTORY: Anxiety, Gallstones Surgical History: Denies all surgeries Family History Family History: Family hx of heart mee Social History Smoker: Non-Smoker Alcohol: Denies ETOH Use Drugs: Denies Drug Use Lives In: Home Constitutional: denies: chills, diaphoresis, fatigue, fever, malaise, sweats, weakness, others EENTM: reports: throat pain, others (difficulty swallowing); denies: blurred vision, double vision, ear bleeding, ear discharge, ear drainage, ear pain, ear ringing, eye pain, eye redness, hearing loss, mouth pain, mouth swelling, nasal discharge, nose bleeding, nose congestion, nose pain, photophobia, tearing, throat swelling, voice changes Respiratory: denies: cough, hemoptysis, orthopnea, SOB at rest, shortness of breath, SOB with excertion, stridor, wheezing, others Cardiovascular: denies: chest pain, dizzy spells, diaphoresis, Dyspnea on exertion, edema, irregular heart beat, left arm pain, lightheadedness, palpitations, PND, syncope, others Gastrointestinal: denies: abdomen distended, abdominal pain, blood streaked bowels, constipated, diarrhea, dysphagia, difficulty swallowing, hematemesis, melena, nausea, poor appetite, poor fluid intake, rectal bleeding, rectal pain, vomiting, others Genitourinary: denies: burning, dysuria, flank pain, frequency, hematuria, incontinence, penile discharge, penile sore, pain, testicle pain, testicle swelling, urgency, others Neurological: denies: dizziness, fainting, headache, left sided numbness, left sided weakness, numbness, paresthesia, pre-existing deficit, right sided numbness, right sided weakness, seizure, speech problems, tingling, tremors, weakness, others Musculoskeletal: denies: back pain, gout, joint pain, joint swelling, muscle pain, muscle stiffness, neck pain, others Integumetry: denies: bruises, change in color, change in hair/nails, dryness, laceration, lesions, lumps, rash, wounds, others Allergic/Immunocompromised: denies: Difficulty Healing, Frequent Infections, Hives, Itching, others Hematologic/Lymphatic: denies: anemia, blood clots, easy bleeding, easy bruising, swollen glands, others Endocrine: denies: excessive hunger, excessive sweating, excessive thirst, excessive urination, flushing, intolerance to cold, intolerance to heat, unex plained weight gain, unexplained weight loss, others Psychiatric: denies: anxiety, bipolar disorder, depression, hopeless, panic disorder, schizophrenia, sleepless, suicidal, others All Other Systems: Reviewed and Negative Physical Exam General Appearance: Normal HEENT: Other (enlarged tonsils, kissing) Neck: Full Range of Motion, Non-Tender, Normal, Normal Inspection Respiratory: Chest Non-Tender, Lungs Clear, No Accessory Muscle Use, No Respiratory Distress, Normal Breath Sounds Cardiovascular: No Edema, No JVD, No Murmur, No Gallop, Normal Peripheral Pulses, Regular Rate/Rhythm Breast Exam: Deferred Gastrointestinal: No Organomegaly, Non Tender, No Pulsatile Mass, Normal Bowel Sounds, Soft Genitalia: Deferred Pelvic: Deferred Rectal: Deferred Extremities: No calf tenderness, Normal capillary refill, Normal inspection, Normal range of motion, Non-tender, No pedal edema Musculoskeletal : Apperance: Normal Neurologic: Alert, employee benefits administrator II-XII nml as Tested, No Motor Deficits, Normal Affect, Normal Mood, No Sensory Deficits Cerebellar Function: Normal Reflexes: Normal Skin: Dry, Normal Color, Warm Lymphatic: No Adenopathy Was a procedure done? Was a procedure done?: No EENT DIFF Eye: N/A Ear: N/A Nose: N/A Mouth: N/A Sore Throat: Epiglottitis, Chano's Angina, Peritonsillar Abscess, Peritonsillar Cellulitis, Pharyngitis, Viral Pharyngitis X-Ray, Labs, Meds, VS Vital Signs Date Time Temp Pulse Resp B/P (MAP) Pulse Ox O2 Delivery O2 Flow Rate FiO2 06/07/25 11:26 98.3 89 18 123/74 (90) 99 98.3 06/07/25 11:25 Room Air* 0 21 06/07/25 11:10 98.2 107 18 131/88 100 98.2 Lab Test 06/07/25 11:32 Range/Units White Blood Count 17.1 H 4.4-10.8 10^3/uL Red Blood Count 5.34 4.5-5.90 10^6/uL Hemoglobin 16.3 13.5-17.5 g/dL Hematocrit 46.9 41.0-53.0 % Mean Corpuscular Volume 87.7 80.0-100.0 fL Mean Corpuscular Hemoglobin 30.6 28.0-32.0 pg Mean Corpuscular Hemoglobin Concent 34.8 32.0-36.0 g/dL Red Cell Distribution Width 12.7 11.8-14.3 % Platelet Count 351 140-450 10^3/uL Mean Platelet Volume 8.3 6.9-10.8 fL Neutrophils (%) (Auto) 85.8 H 37.0-80.0 % Lymphocytes (%) (Auto) 7.7 L 10.0-50.0 % Monocytes (%) (Auto) 6.1 0.0-12.0 % Eosinophils (%) (Auto) 0.3 0.0-7.0 % Basophils (%) (Auto) 0.1 0.0-2.0 % Neutrophils # (Auto) 14.7 H 1.6-8.6 10 ^3/uL Lymphocytes # (Auto) 1.3 0.4-5.4 10 ^3/uL Monocytes # (Auto) 1.1 0-1.3 10 ^3/uL Eosinophils # (Auto) 0 0-0.8 10 ^3/uL Basophils # (Auto) 0 0-0.2 10 ^3/uL Nucleated Red Blood Cells 0.3 % Sodium Level 139 136-145 mmol/L Potassium Level 3.3 L 3.5-5.1 mmol/L Chloride Level 103 98-107 mmol/L Carbon Dioxide Level 24 20-31 mmol/L Anion Gap 12 5-15 Blood Urea Nitrogen < 5 L 9-23 mg/dL Creatinine 1.00 0.700-1.30 mg/dL Glomerular Filtration Rate Calc 108 >90 mL/min BUN/Creatinine Ratio 5.0 L 10.0-20.0 Serum Glucose 108 H 74-106 mg/dL Lactic Acid Level 1.2 0.4-2.0 mmol/L Calcium Level 9.9 8.7-10.4 mg/dL Current Medications Medications (Trade) Dose Ordered Sig/Anh Route Start Time Stop Time Status Last Admin Sodium Chloride 1,000 ml @ 1,000 mls/hr Q1H ONCE IV 06/07/25 11:30 06/07/25 12:29 DC 06/07/25 11:53 Dexamethasone Sodium Phosphate (Decadron Injection) 4 mg ONCE ONCE IV 06/07/25 11:30 06/07/25 11:31 DC 06/07/25 11:53 Cefazolin Sodium/ Dextrose 50 ml @ 50 mls/hr ONCE ONCE IV 06/07/25 11:30 06/07/25 12:29 DC 06/07/25 11:53 Time of 1ST Reevaluation: 11:50 Reevaluation 1ST: Unchanged Patient Education/Counseling: Diagnosis, Treatment, Need For Follow Up Family Education/Counseling: No Family Present SEPSIS Sepsis Screen Date sepsis recognized/suspect: Jun 07, 2025 Time Sepsis recognized/suspect: 111 Recent Procedure: No On Antibiotic Therapy: No Respiratory Rate >20: No Heart Rate >90: Yes Temp<36 C (96.8 F) or >38.3 C: No SBP <90 or MAP <65 mmHG: No New Acute Mental Status Change: No Is the patient on CPAP, BIPAP,: No Physician Orders Neck With Contrast Soft (06/07/25 11:20) Blood Culture (06/07/25 11:20) Clindamycin Ivpb Cleocin (06/07/25 14:45) Vital Signs Date Time Temp Pulse Resp B/P (MAP) Pulse Ox O2 Delivery O2 Flow Rate FiO2 06/07/25 11:26 98.3 89 18 123/74 (90) 99 98.3 06/07/25 11:25 Room Air* 0 21 06/07/25 11:10 98.2 107 18 131/88 100 98.2 Laboratory Tests Test 06/07/25 11:32 Lactic Acid Level 1.2 mmol/L (0.4-2.0) White Blood Count 17.1 10^3/uL (4.4-10.8) H Medications Medications Dose Ordered Sig/Anh Route Start Time Stop Time Status Last Admin Dose Admin Cefazolin Sodium/ Dextrose 50 ml @ 50 mls/hr ONCE ONCE IV 06/07/25 11:30 06/07/25 12:29 DC 06/07/25 11:53 Dexamethasone Sodium Phosphate 4 mg ONCE ONCE IV 06/07/25 11:30 06/07/25 11:31 DC 06/07/25 11:53 Sodium Chloride 1,000 ml @ 1,000 mls/hr Q1H ONCE IV 06/07/25 11:30 06/07/25 12:29 DC 06/07/25 11:53 Departure 1 Departure Time of Disposition: 14:49 (Patient with as depressive pharyngitis. The patient with inability to tolerate p.o.. We will admit patient for further workup , IV antibiotics, and expert consultation) Impression: Primary Impression: Tonsillitis Additional Impression: Pharyngitis Disposition: ADMITTED INPATIENT Admit to: Med Surg Condition: Guarded Critical Care Note Critical Care Time?: Yes Critical care comment: Concern for epiglottitis Authorized and Performed by: Sally Akhtar MD Total critical care time: Approximately 38 minutes Due to a high probability of clinically significant, life threatening deterioration, the patient required my highest level of preparedness to intervene emergently and I personally spent this critical care time directly and personally managing the patient. This critical care time included obtaining a history; examining the patient; pulse oximetry; ordering and review of studies; arranging urgent treatment with development of a management plan; evaluation of patient's response to treatment; frequent reassessment; and, discussions with other providers. This critical care time was performed to assess and manage the high probability of imminent, life-threatening deterioration that could result in multi-organ failure. It was exclusive of separately billable procedures and treating other patients and teaching time. Please see my other sections and the rest of the note for further information on patient assessment and treatment. Stability Stability form required: No Heart Score Heart Score: Heart Score Response (Comments) Value History N/A 0 EKG N/A 0 Age N/A 0 Risk Factors N/A 0 Troponin N/A 0 Total 0 I personally scribed for SALLY AKHTAR MD ([email or web address]) on 06/07/25 at 11:26. Electronically submitted by Susan Espinal ([email or web address]). SALLY AKHTAR MD Jun 07, 2025 11:26
[2025-06-07] MEDS: ceFAZolin 2 GM/D5W50ml 50 ML IV ONE (11:53)
[2025-06-07] MEDS: SODIUM CHLORIDE 0.9% 1,000 ML IV ONE (11:53)
[2025-06-07 11:59] LABS: Hematocrit 46.9 % (41.0-53.0); Hemoglobin 16.3 g/dL (13.5-17.5); Mean Corpuscular Hemoglobin 30.6 pg (28.0-32.0); Mean Corpuscular Volume 87.7 fL (80.0-100.0); Nucleated Red Blood Cells % 0.3 %
[2025-06-07 12:03] LABS: Chloride 103 mmol/L (98-107); Sodium 139 mmol/L (136-145)
[2025-06-07 12:04] LABS: Anion Gap 12 (5-15); Carbon Dioxide 24 mmol/L (20-31)
[2025-06-07 12:05] LABS: Calcium 9.9 mg/dL (8.7-10.4)
[2025-06-07 12:11] LABS: BUN/Creatinine Ratio 5.0 (10.0-20.0); Blood Urea Nitrogen < 5 mg/dL (9-23); Glucose 108 mg/dL (74-106); Potassium 3.3 mmol/L (3.5-5.1)
--- NOTE | 2025-06-07 13:07 | DVH ---
CT NECK WITH CONTRAST SOFT INDICATION: c/f retro pharyngeal abscess EXAM DATE: 06/07/2025 12:22 PM COMPARISON: None RADIATION DOSE: CTDIvol: 14.35 mGy, DLP: 461.28 mGy*cm PROCEDURE: Using the CT scanner, contiguous axial images were obtained from the great vessels to above the orbits following intravenous administration of 100 cc mL omnipaque 350. Coronal and sagittal reformatted images were then generated. All CT scans at this medical facility are performed using dose modulation techniques as appropriate to a performed exam including the following: Automated exposure control was utilized; adjustment of the MA and/or KV according to patient size; and use of iterative reconstruction technique. FINDINGS: Filling the visualized portions of the paranasal sinuses are clear. There is adenoidal hypertrophy in the nasopharynx. There is hypertrophy of the tonsillar pillars causing narrowing of the nasopharyngeal airway. No abscess seen. The parotid and submandibular glands are normal in appearance. Small bilateral level 1 and level 2 lymph nodes The vocal cords are symmetric in size shape and appearance. No masses in the thyroid gland. No enlarged nodes in the lower neck. Lung apices are clear. No destructive lesions of bone. IMPRESSION: 1. There is adenoidal and tonsillar hypertrophy without evidence of abscess
--- NOTE | 2025-06-07 15:27 | DVHHP2 ---
Admitting Diagnosis: sore throat History of Present Illness 24 year old male with PMHx Anxiety, presents to the ED with a chief compliant of sore throat onset 4 days. Patient began experiencing sore throat 4 days ago, was seen in this ED yesterday (06/06/25), prescribed Amoxicillin for Tonsillitis, started course last night. Patient states he noticed sore throat, throat swelling worsened this morning, difficulty swallowing, returned to ED. Currently rates pain 05/07. Denies fever, chills, hemoptysis, dizziness, nausea, vomiting, diarrhea, chest pain. No other symptoms or modifying factors present at this time. While in the emergency department the patient was evaluated by the provider, As per provider: Labs, vital signs, and imagining monitored. Patient will be admitted for further evaluation and treatment. I discussed admission with the patient/family and is in agreement to treatment plan Allergies: Coded Allergies: Iodine (Verified Allergy, Unknown, 08/11/24) Home Meds No Active Prescriptions or Reported Meds Current Medications Current Medications Medications (Trade) Dose Ordered Sig/Anh Route PRN Reason Start Time Stop Time Status Last Admin Clindamycin Phosphate 50 ml @ 50 mls/hr TID IV 06/07/25 22:00 06/07/25 19:08 DC Ceftriaxone Sodium 50 ml @ 100 mls/hr DAILY@09 IV 06/08/25 09:00 06/08/25 10:50 Methylprednisolone Sodium Succinate (Solu Medrol) 60 mg Q8HR IV 06/07/25 22:00 06/08/25 14:31 Clindamycin Phosphate 50 ml @ 50 mls/hr Q8HR IV 06/07/25 22:00 06/08/25 14:32 Review of Systems Constitutional: denies chills, denies fever, denies malaise Eyes: denies eye pain, denies vision change ENT: denies ear pain, denies headache, denies nasal congestion, denies painful swallowing, denies voice change Cardiovascular: denies chest pain, denies edema, denies orthopnea, denies palpitations, denies paroxysmal nocturnal dyspnea Respiratory: denies cough, denies shortness of breath Gastrointestinal: denies constipation, denies diarrhea, denies nausea, denies vomiting Genitourinary: denies dysuria, denies frequent urination, denies urethral discharge Musculoskeletal: denies back pain, denies joint pain, denies muscle pain Skin: denies bruising, denies itching, denies rash Neurological: denies focal weakness, denies headache, denies sensory changes Psychiatric: denies anxiety, denies depression Endocrine: denies polydipsia, denies polyuria Hematologic/Lymphatic: denies easy bleeding, denies easy bruising, denies enlarged lymph nodes Allergic/Immunologic: denies allergy, denies hives Vital Signs Vital Signs Date Time Temp Pulse Resp B/P (MAP) Pulse Ox O2 Delivery O2 Flow Rate FiO2 06/08/25 17:00 98.2 101 18 122/65 (84) 98 98.2 06/08/25 08:00 Room Air* 0 21 Physical Exam General Appearance: alert, no distress HEENT: EOMI, PERRLA, normal external inspect of ears, no icterus, no nasal drainage Neck: no carotid bruit, no jugular venous distention (JVD), no lymphadenopathy Chest: normal thorax Respiratory: clear to auscultation, normal air movement Cardiovascular: regular rate and rhythm, no diastolic murmur, no jugular venous distention (JVD), no rub, no systolic murmur Abdominal: soft, no hepatomegaly, no mass, no splenomegaly, no tenderness Genitourinary: grossly normal external Musculoskeletal: no joint tenderness, no swelling Extremities: normal pulses, no calf tenderness, no clubbing, no cyanosis, no edema Skin: no bruising, no jaundice, no rash Neurological: alert, No focal deficit SEPSIS Sepsis Screen Date sepsis recognized/suspect: Jun 07, 2025 Time Sepsis recognized/suspect: 1110 Recent Procedure: No On Antibiotic Therapy: No Respiratory Rate >20: No Heart Rate >90: Yes Temp<36 C (96.8 F) or >38.3 C: No SBP <90 or MAP <65 mmHG: No New Acute Mental Status Change: No Is the patient on CPAP, BIPAP,: No Physician Orders Neck With Contrast Soft (06/07/25 11:20) Blood Culture (06/07/25 11:20) Admit (06/07/25 15:22) Code Status (06/07/25 15:22) Sodium Chloride 0.9% (06/07/25 15:30) Hydrocodone-Acet 5/325mg Tab ([place] 5/32 (06/07/25 15:30) Ondansetron Hcl (Zofran) (06/07/25 15:30) Docusate Sodium Capsule (Colace Capsule) (06/07/25 15:30) Condition: Fair (06/07/25 15:22) Acetaminophen Tablet (Tylenol Tablet) (06/07/25 15:30) Regular Diet (06/07/25 Dinner) Morphine Sulfate Injection (06/07/25 16:45) Ceftriaxone 1gm/50ml (Rocephin) (06/08/25 09:00) Methylprednisolone Sod Succ (Solu Medrol (06/07/25 22:00) Clindamycin 900mg Iv (Cleocin Iv) (06/07/25 22:00) Nose Throat Culture (06/07/25 19:06) * Infectious Kate- Dr. Consuelo Thomas (06/08/25 12:22) Vital Signs Date Time Temp Pulse Resp B/P (MAP) Pulse Ox O2 Delivery O2 Flow Rate FiO2 06/08/25 17:00 98.2 101 18 122/65 (84) 98 98.2 06/08/25 13:00 97.9 92 18 111/72 (85) 99 97.9 06/08/25 09:00 97.8 96 18 115/71 (86) 99 97.8 06/08/25 08:00 Room Air* 0 21 06/08/25 08:00 Room Air* 0 21 06/08/25 05:00 97.9 95 20 94/55 (68) 99 97.9 06/07/25 19:58 98.0 91 19 115/60 (78) 99 98.0 06/07/25 19:28 97.9 98 18 139/77 (97) 100 97.9 06/07/25 15:45 98.9 96 17 138/87 (104) 97 98.9 06/07/25 11:26 98.3 89 18 123/74 (90) 99 98.3 06/07/25 11:25 Room Air* 0 21 06/07/25 11:10 98.2 107 18 131/88 100 98.2 Laboratory Tests Test 06/07/25 11:32 06/08/25 05:17 Lactic Acid Level 1.2 mmol/L (0.4-2.0) White Blood Count 17.1 10^3/uL (4.4-10.8) H 9.4 10^3/uL (4.4-10.8) # Medications Medications Dose Ordered Sig/Anh Route Start Time Stop Time Status Last Admin Dose Admin Ceftriaxone Sodium 50 ml @ 100 mls/hr DAILY@09 IV 06/08/25 09:00 06/08/25 10:50 Results Labs Test 06/08/25 05:17 06/07/25 11:32 06/07/25 08:10 Range/Units White Blood Count 9.4 # 4.4-10.8 10^3/uL Red Blood Count 4.74 4.5-5.90 10^6/uL Hemoglobin 14.7 13.5-17.5 g/dL Hematocrit 41.2 # 41.0-53.0 % Mean Corpuscular Volume 86.9 80.0-100.0 fL Mean Corpuscular Hemoglobin 31.0 28.0-32.0 pg Mean Corpuscular Hemoglobin Concent 35.7 32.0-36.0 g/dL Red Cell Distribution Width 13.1 11.8-14.3 % Platelet Count 342 140-450 10^3/uL Mean Platelet Volume 8.4 6.9-10.8 fL Neutrophils (%) (Auto) 88.8 H 37.0-80.0 % Lymphocytes (%) (Auto) 8.7 L 10.0-50.0 % Monocytes (%) (Auto) 2.5 0.0-12.0 % Eosinophils (%) (Auto) 0.0 0.0-7.0 % Basophils (%) (Auto) 0.0 0.0-2.0 % Neutrophils # (Auto) 8.3 1.6-8.6 10 ^3/uL Lymphocytes # (Auto) 0.8 0.4-5.4 10 ^3/uL Monocytes # (Auto) 0.2 0-1.3 10 ^3/uL Eosinophils # (Auto) 0 0-0.8 10 ^3/uL Basophils # (Auto) 0 0-0.2 10 ^3/uL Nucleated Red Blood Cells 0.0 % Sodium Level 141 136-145 mmol/L Potassium Level 3.7 3.5-5.1 mmol/L Chloride Level 104 98-107 mmol/L Carbon Dioxide Level 22 20-31 mmol/L Anion Gap 15 5-15 Blood Urea Nitrogen 8 L 9-23 mg/dL Creatinine 0.84 0.700-1.30 mg/dL Glomerular Filtration Rate Calc 126 >90 mL/min BUN/Creatinine Ratio 9.5 L 10.0-20.0 Serum Glucose 147 H 74-106 mg/dL Calcium Level 9.8 8.7-10.4 mg/dL Total Bilirubin 0.5 0.2-1.0 mg/dL Aspartate Amino Transferase (AST) 15 13-40 U/L Alanine Aminotransferase (ALT) 22 7-40 U/L Alkaline Phosphatase 69 46-116 U/L Total Protein 8.0 5.7-8.2 g/dL Albumin 4.7 3.2-4.8 g/dL Lactic Acid Level 1.2 0.4-2.0 mmol/L Group A Streptococcus Rapid Negative Microbiology Date/Time Source Procedure Growth Status 06/07/25 11:32 Blood Blood Culture - Preliminary NO GROWTH AFTER 24 HOURS OF INCUBATION. Resulted Plan 1. Pharyngitis Monitor, IV antibiotics, ID consult, IV steroids, SCDs 2. Tonsillitis Monitor, IV antibiotics, ID consult, IV steroids, SCDs Plan discussed with: Patient, Other NICHOLESUZANNA Jorge CHIEF NURSING EXECUTIVE Jun 07, 2025 15:27
[2025-06-07] MEDS ORDERED: ACETAMINOPHEN 325 MG TAB PO PRN (15:30)
[2025-06-07] MEDS ORDERED: DOCUSATE SOD 100 MG CAP PO PRN (15:30)
[2025-06-07] MEDS ORDERED: ONDANSETRON HCL 4 MG/2 ML VIAL IV PRN (15:30)
[2025-06-07] MEDS ORDERED: HYDROcodone-ACET 5/325MG TAB PO PRN (15:30)
[2025-06-07] MEDS: CLINDAMYCIN 900MG IV 50 ML IV ONE (15:33)
[2025-06-07] MEDS ORDERED: MORPHINE SULFATE 4 MG/ML SYR/VIAL IV PRN (16:45)
[2025-06-07] MEDS: SODIUM CHLORIDE 0.9% 1,000 ML IV SCH (16:46)
[2025-06-07 19:58] VITALS: BP 115/60; PULSE 91; RESP 19; TEMP 98; O2SAT 99
[2025-06-07] MEDS: methylPREDNISolone SOD SUCC 125 MG/2 ML VL IV SCH (21:02)
[2025-06-07] MEDS ORDERED: CLINDAMYCIN 300MG IV 50 ML IV SCH (22:00)
[2025-06-07] MEDS: CLINDAMYCIN 900MG IV 50 ML IV SCH (22:01)
[2025-06-08 05:00] VITALS: BP 94/55; PULSE 95; RESP 20; TEMP 97.9; O2SAT 99
[2025-06-08 06:40] LABS: Hematocrit 41.2 % (41.0-53.0); Hemoglobin 14.7 g/dL (13.5-17.5); Mean Corpuscular Hemoglobin 31.0 pg (28.0-32.0); Mean Corpuscular Volume 86.9 fL (80.0-100.0); Nucleated Red Blood Cells % 0.0 %
[2025-06-08 06:59] LABS: Alanine Aminotransferase 22 U/L (7-40); Albumin 4.7 g/dL (3.2-4.8); Alkaline Phosphatase 69 U/L (46-116); Anion Gap 15 (5-15); BUN/Creatinine Ratio 9.5 (10.0-20.0); Bilirubin, Total 0.5 mg/dL (0.2-1.0); Calcium 9.8 mg/dL (8.7-10.4); Carbon Dioxide 22 mmol/L (20-31); Chloride 104 mmol/L (98-107); Potassium 3.7 mmol/L (3.5-5.1); Sodium 141 mmol/L (136-145); Total Protein 8.0 g/dL (5.7-8.2)
[2025-06-08 07:00] LABS: Blood Urea Nitrogen 8 mg/dL (9-23); Glucose 147 mg/dL (74-106)
[2025-06-08 09:00] VITALS: BP 115/71; PULSE 96; RESP 18; TEMP 97.8; O2SAT 99
[2025-06-08 12:12] LABS: Rapid Strep A Screen-Throat Negative
--- NOTE | 2025-06-08 12:23 | DVHPN2 ---
Progress Note - Dictate Date Seen: Jun 08, 2025 Medical Necessity Reason Pt with a Central, PICC or Fol: No vital signs Vital Sign Date Time Temp Pulse Resp B/P (MAP) Pulse Ox O2 Delivery O2 Flow Rate FiO2 06/08/25 05:00 97.9 95 20 94/55 (68) 99 97.9 06/07/25 11:25 Room Air* 0 21 medications Current Medications Medications Dose Ordered Sig/Anh Route Start Time Stop Time Status Last Admin Dose Admin Sodium Chloride 1,000 ml @ 120 mls/hr Q8H20M IV 06/07/25 15:30 06/08/25 10:53 120 MLS/HR Acetaminophen/ Hydrocodone Bitart 1 tab Q4HP PRN PO 06/07/25 15:30 Ondansetron HCl 4 mg Q4HP PRN IV 06/07/25 15:30 Docusate Sodium 100 mg BIDPRN PRN PO 06/07/25 15:30 Acetaminophen 650 mg Q6HP PRN PO 06/07/25 15:30 Morphine Sulfate 2 mg Q4HPRN PRN IV 06/07/25 16:45 Ceftriaxone Sodium 50 ml @ 100 mls/hr DAILY@09 IV 06/08/25 09:00 06/08/25 10:50 100 MLS/HR Methylprednisolone Sodium Succinate 60 mg Q8HR IV 06/07/25 22:00 06/08/25 05:56 60 MG Clindamycin Phosphate 50 ml @ 50 mls/hr Q8HR IV 06/07/25 22:00 06/08/25 05:56 50 MLS/HR laboratory and microbiology Laboratory Tests 06/08/25 05:17 Test 06/08/25 05:17 Range/Units Serum Glucose 147 H 74-106 mg/dL Problem List 1. Pharyngitis Monitor, IV antibiotics, ID consult, IV steroids, SCDs 2. Tonsillitis Monitor, IV antibiotics, ID consult, IV steroids, SCDs Assessment/Plan Subjective Patient is awake and alert. Objective Patient had severe pharyngitis with tonsillitis yesterday. Patient was started on high-dose clindamycin and IV steroids. Patient is now able to talk better and swallow with no risk of airway obstruction. Patient states he feels much better. Patient is afebrile today. Plan Continue current treatment. ID consult. Patient will need to follow-up outpatient with ENT for tonsillectomy and continue antibiotics with clindamycin. Plan discussed with: Patient, Other SUZANNA VARELA NP Jun 08, 2025 12:23
[2025-06-08 13:00] VITALS: BP 111/72; PULSE 92; RESP 18; TEMP 97.9; O2SAT 99
[2025-06-08 17:00] VITALS: BP 122/65; PULSE 101; RESP 18; TEMP 98.2; O2SAT 98
[2025-06-08 21:00] VITALS: BP 118/65; PULSE 90; RESP 19; TEMP 98.3; O2SAT 98
[2025-06-08 23:45] VITALS: BP 119/69; PULSE 85; RESP 18; TEMP 97.6; O2SAT 95
[2025-06-09] VITALS (7 sets, daily range): BP systolic 111–127; BP diastolic 59–77; PULSE 66–85; RESP 16–18; TEMP 97.6–98.6; O2SAT 96–98
--- NOTE | 2025-06-09 09:17 | DVHPN2 ---
Progress Note - Dictate Date Seen: Jun 09, 2025 Medical Necessity Reason Pt with a Central, PICC or Fol: No vital signs Vital Sign Date Time Temp Pulse Resp B/P (MAP) Pulse Ox O2 Delivery O2 Flow Rate FiO2 06/09/25 08:35 98.6 85 18 111/68 (82) 96 98.6 06/08/25 08:00 Room Air* 0 21 Total Intake and Output 06/08/25 06/08/25 06/09/25 15:00 23:00 07:00 Intake Total 50 ml 550 ml 1350 ml Balance 50 ml 550 ml 1350 ml medications Current Medications Medications Dose Ordered Sig/Anh Route Start Time Stop Time Status Last Admin Dose Admin Sodium Chloride 1,000 ml @ 120 mls/hr Q8H20M IV 06/07/25 15:30 06/09/25 00:50 120 MLS/HR Acetaminophen/ Hydrocodone Bitart 1 tab Q4HP PRN PO 06/07/25 15:30 Ondansetron HCl 4 mg Q4HP PRN IV 06/07/25 15:30 Docusate Sodium 100 mg BIDPRN PRN PO 06/07/25 15:30 Acetaminophen 650 mg Q6HP PRN PO 06/07/25 15:30 Morphine Sulfate 2 mg Q4HPRN PRN IV 06/07/25 16:45 Ceftriaxone Sodium 50 ml @ 100 mls/hr DAILY@09 IV 06/08/25 09:00 06/08/25 10:50 100 MLS/HR Methylprednisolone Sodium Succinate 60 mg Q8HR IV 06/07/25 22:00 06/09/25 05:21 60 MG Clindamycin Phosphate 50 ml @ 50 mls/hr Q8HR IV 06/07/25 22:00 06/09/25 05:20 50 MLS/HR objective General Appearance: alert, no distress HEENT: EOMI, PERRLA, normal external inspect of ears, no icterus, no nasal drainage Neck: no carotid bruit, no jugular venous distention (JVD), no lymphadenopathy Chest: normal thorax Respiratory: clear to auscultation, normal air movement Cardiovascular: regular rate and rhythm, no diastolic murmur, no jugular venous distention (JVD), no rub, no systolic murmur Abdominal: soft, no hepatomegaly, no mass, no splenomegaly, no tenderness Genitourinary: grossly normal external Musculoskeletal: no joint tenderness, no swelling Extremities: normal pulses, no calf tenderness, no clubbing, no cyanosis, no edema Skin: no bruising, no jaundice, no rash Neurological: alert, No focal deficit laboratory and microbiology Laboratory Tests 06/08/25 05:17 Test 06/08/25 05:17 Range/Units Serum Glucose 147 H 74-106 mg/dL Problem List 1. Pharyngitis Monitor, IV antibiotics, ID consult, IV steroids, SCDs 2. Tonsillitis Monitor, IV antibiotics, ID consult, IV steroids, SCDs Assessment/Plan Subjective Patient was asleep during assessment. Objective No signs of distress. Patient was sleeping with no sounds of respiratory distress. Patient was admitted for pharyngitis and tonsillitis. Patient was started on IV steroids and IV antibiotics. I did dc steroids today. Patient appears to be doing much better. No airway obstruction noted. Patient is continuing to improve with IV antibiotics. Patient was instructed to follow up outpatient with ENT for tonsillectomy. ID has been consulted, still waiting on recommendations. Plan Continue IV antibiotics. Possible DC plan in 1 to 2 days. Continue PRN pain medications. Plan discussed with: Patient, Other SUZANNA VARELA FORKLIFT SUPERVISOR Jun 09, 2025 09:17
[2025-06-10 01:00] VITALS: BP 129/78; PULSE 60; RESP 17; TEMP 97.5; O2SAT 97
[2025-06-10 04:31] VITALS: BP 109/50; PULSE 54; RESP 18; TEMP 97.8; O2SAT 99
[2025-06-10 08:51] VITALS: BP 109/72; PULSE 68; RESP 18; TEMP 97.7; O2SAT 97
[2025-06-10] MEDS ORDERED: CLIN1CAP70 PO (11:31)
--- NOTE | 2025-06-10 11:33 | DVHDS2 ---
Discharge Summary Date of Admission Jun 07, 2025 at 15:22 Date of Discharge: Jun 10, 2025 Labs/Diagnostic Data: Laboratory Results Test 06/08/25 05:17 06/07/25 11:32 06/07/25 08:10 White Blood Count 9.4 10^3/uL (4.4-10.8) Red Blood Count 4.74 10^6/uL (4.5-5.90) Hemoglobin 14.7 g/dL (13.5-17.5) Hematocrit 41.2 % (41.0-53.0) Mean Corpuscular Volume 86.9 fL (80.0-100.0) Mean Corpuscular Hemoglobin 31.0 pg (28.0-32.0) Mean Corpuscular Hemoglobin Concent 35.7 g/dL (32.0-36.0) Red Cell Distribution Width 13.1 % (11.8-14.3) Platelet Count 342 10^3/uL (140-450) Mean Platelet Volume 8.4 fL (6.9-10.8) Neutrophils (%) (Auto) 88.8 % (37.0-80.0) Lymphocytes (%) (Auto) 8.7 % (10.0-50.0) Monocytes (%) (Auto) 2.5 % (0.0-12.0) Eosinophils (%) (Auto) 0.0 % (0.0-7.0) Basophils (%) (Auto) 0.0 % (0.0-2.0) Neutrophils # (Auto) 8.3 10 ^3/uL (1.6-8.6) Lymphocytes # (Auto) 0.8 10 ^3/uL (0.4-5.4) Monocytes # (Auto) 0.2 10 ^3/uL (0-1.3) Eosinophils # (Auto) 0 10 ^3/uL (0-0.8) Basophils # (Auto) 0 10 ^3/uL (0-0.2) Nucleated Red Blood Cells 0.0 % Sodium Level 141 mmol/L (136-145) Potassium Level 3.7 mmol/L (3.5-5.1) Chloride Level 104 mmol/L (98-107) Carbon Dioxide Level 22 mmol/L (20-31) Anion Gap 15 (5-15) Blood Urea Nitrogen 8 mg/dL (9-23) Creatinine 0.84 mg/dL (0.700-1.30) Glomerular Filtration Rate Calc 126 mL/min (>90) BUN/Creatinine Ratio 9.5 (10.0-20.0) Serum Glucose 147 mg/dL (74-106) Calcium Level 9.8 mg/dL (8.7-10.4) Total Bilirubin 0.5 mg/dL (0.2-1.0) Aspartate Amino Transferase (AST) 15 U/L (13-40) Alanine Aminotransferase (ALT) 22 U/L (7-40) Alkaline Phosphatase 69 U/L (46-116) Total Protein 8.0 g/dL (5.7-8.2) Albumin 4.7 g/dL (3.2-4.8) Lactic Acid Level 1.2 mmol/L (0.4-2.0) Group A Streptococcus Rapid Negative Other Laboratory Tests 06/08/25 05:17 Brief Hx & Hospital Course: 24 year old male with PMHx Anxiety, presents to the ED with a chief compliant of sore throat onset 4 days. Patient began experiencing sore throat 4 days ago, was seen in this ED yesterday (06/06/25), prescribed Amoxicillin for Tonsillitis, started course last night. Patient states he noticed sore throat, throat swelling worsened this morning, difficulty swallowing, returned to ED. Currently rates pain /10. Denies fever, chills, hemoptysis, dizziness, nausea, vomiting, diarrhea, chest pain. No other symptoms or modifying factors present at this time. While in the emergency department the patient was evaluated by the provider, As per provider: Labs, vital signs, and imagining monitored. Patient was admitted on June 07, 2025 for severe throat pain. Patient was found to have pharyngitis and tonsillitis due to the severity of swelling which was concerning for his airway patient was given high-dose steroids and IV antibiotics with clindamycin. Patient's condition improved over several days. He was instructed to follow-up with his PCP and obtain a referral possible for a tonsillectomy. Patient stated he was able to get a hold of his PCP and they will see him on Saturday and give him a referral for ENT for tonsillectomy. Patient swelling has reduced to his baseline and he will continue antibiotics outpatient with clindamycin for an additional 5 days. The patient received proper medical treatment and medications. Vital signs, Imaging and Laboratory Work was monitored daily. All consults recommendations were followed as provided. There were no complaints or new complaints upon discharge, all questions and concerns were answered.Patient was advised to return to the ER or call 911 if any headaches, dizziness, shortness of breath, chest pain, bleeding, fevers, or worsening of medical condition. Patient/Family was counseled about treatment plan, medications, possible side effects, patient verbalized understanding. All questions were answered to the best of my ability.The patient symptoms improved and they are okay to be DC. Condition at Discharge: Good Final Diagnosis/Problems List Pharyngitis, tonsillitis Discharge Disposition: Home Discharge Instruct/Medications Diet: Regular Activity: No Restrictions, As Tolerated Follow Up/Referral: pcp 1 week ENT Scheduled Clindamycin Hcl (Clindamycin Hcl), 1 CAP PO TID Discharge Statement: "Patient was advised to return to the ER or call 911 if any headaches, dizziness, shortness of breath, chest pain, abdominal pain, bleeding, fevers, or worsening of medical condition. Patient was counseled about treatment plan, medications, possible side effects, patientverbalized understanding. All questions were answered to the best of my ability. This discharge took greater then 30 minutes in planning, reviewing documentation, counseling the patient, and discussing with other team members." ASSESSMENT ASSESSMENT Assessment Pharyngitis, tonsillitis SUZANNA VARELA NP Jun 10, 2025 11:33
== END 2025-06-10 14:00 | disposition home or self-care (01) | DRG 113 ==
LOC: ER 11:07 → OVERFLOW 15:22 → CENTRAL 06-08 23:23
PROVIDERS: ADMIT Nurse Practitioner; ATTEND Nurse Practitioner
DX: J02.9 Acute pharyngitis, unspecified (principal); F41.9 Anxiety disorder, unspecified; Z91.041 Radiographic dye allergy status; Z82.49 Family history of ischemic heart disease and other diseases of the circulatory system
CPT/HCPCS: 36415; 70491; 80048; 80053; 83605; 85025; 87040; 87070; 87880; 96374; 96375; 99291; G0378; J1100; J3490